=== PATIENT | female | born 1955 | race Caucasian/White ===

== ENCOUNTER → 2018-02-19 18:58 | Outpatient (CLI) | payer OTHER, SELFPAY ==
--- NOTE | 2018-02-19 | DI.RAD.S_ITS ---
PROCEDURE: XR THORACIC SPINE 3V INDICATIONS: NECK PAIN TECHNIQUE: 3 views of the thoracic spine were acquired. COMPARISON: None. FINDINGS: Bones: No fractures or dislocations. No suspicious bony lesions. 12 pairs of ribs are noted, and appear intact where visualized. Cervical fixation plate is present. Multilevel disc desiccation is present throughout the thoracic spine. Soft tissues: No paravertebral stripe thickening. IMPRESSION: Mild degenerative changes. Dictated by: Michela Reaves M.D. on 02/19/2018 at 20:43 Approved by: Michela Reaves M.D. on 02/19/2018 at 20:43
--- NOTE | 2018-02-19 | DI.RAD.S_ITS ---
PROCEDURE: XR CERVICAL SPINE 2V OR 3V INDICATIONS: NECK PAIN TECHNIQUE: 3 view(s) of the cervical spine were acquired. COMPARISON: [facility], CR, XR THORACIC SPINE 3V, 02/19/2018, 19:16. [facility], MR, C-SPINE WITHOUT CONTRAST, 01/08/2014, 17:00. FINDINGS: Bones: No fractures or dislocations to the C7-T1 level. The lateral masses of C1 appear intact on the odontoid view. No suspicious bony lesions. Anterior fusion is present from C4-C6. There is an overall appearance of cervical straightening. Soft tissues: No prevertebral soft tissue swelling. IMPRESSION: Post surgical changes without acute osseous abnormality. Dictated by: Michela Reaves M.D. on 02/19/2018 at 20:44 Approved by: Michela Reaves M.D. on 02/19/2018 at 20:45
== END ==
PROVIDERS: Family Provider Family Medicine; PCP Family Medicine; Visit Provider Family Medicine
DX: M54.2 Cervicalgia (principal); M51.34 Other intervertebral disc degeneration, thoracic region; Z98.1 Arthrodesis status
CPT/HCPCS: 72040; 72072

== ENCOUNTER → 2018-03-03 08:37 | Outpatient (CLI) | payer OTHER, SELFPAY ==
--- NOTE | 2018-03-03 | DI.RAD.S_ITS ---
PROCEDURE: XR HAND LT MIN 3V INDICATIONS: LEFT THUMB PAIN TECHNIQUE: 3 views of the left hand(s) acquired. COMPARISON: None. FINDINGS: Bones: No fractures or dislocations. Carpal bones are normally aligned. No suspicious bony lesions. Osteoarthritic changes are noted involving first CMC joint with joint space narrowing, subchondral sclerosis and marginal osteophyte formation. Soft tissues: No suspicious soft tissue calcifications. IMPRESSION: First CMC joint osteoarthritis. No fracture or dislocation. Dictated by: Joaquin Rainey M.D. on 03/03/2018 at 10:24 Approved by: Joaquin Rainey M.D. on 03/03/2018 at 10:25
== END ==
PROVIDERS: Family Provider Family Medicine; PCP Family Medicine; Visit Provider Family Medicine
DX: M18.12 Unilateral primary osteoarthritis of first carpometacarpal joint, left hand (principal); M79.645 Pain in left finger(s)
CPT/HCPCS: 73130

== ENCOUNTER → 2018-03-09 07:09 | Outpatient (CLI) | payer OTHER, SELFPAY ==
--- NOTE | 2018-03-09 | DI.MRI.S_ITS ---
PROCEDURE: MR CERVICAL SPINE WO CON INDICATIONS: CERVICALGIA TECHNIQUE: Noncontrast sagittal T1 spin echo and T2 fast spin echo, sagittal STIR, foraminal oblique sagittal T2 fast spin echo, and axial gradient echo or T2 fast spin echo through the cervical spine. COMPARISON: [facility], , C-SPINE WITHOUT CONTRAST, 01/08/2014, 17:00. FINDINGS: Image quality: Excellent. Alignment and Curvature: Straightening of the normal cervical lordosis. Grade 1 anterolisthesis of C3 on C4. Post surgical changes related to C4-C6 ACDF. Bone Marrow: No evidence of acute fracture Spinal Cord: Visualized spinal cord has normal size and signal. No cerebellar tonsillar herniation. Paraspinous Soft Tissues: No paravertebral masses. Prevertebral soft tissues are normal in thickness. C2-C3: Normal appearance. C3-C4: Bilateral uncovertebral arthropathy and posterior intervening disc osteophyte complex, and bilateral facet disease. Mild/moderate canal stenosis with effacement of the intrathecal sac and mass effect on the cord which appears slightly progressed since 01/08/14. Severe right and mild left foraminal stenoses, grossly unchanged. C4-C5: No residual canal stenosis. No foraminal stenosis. C5-C6: No residual canal stenosis. No foraminal stenosis. C6-C7: Bilateral uncovertebral arthropathy and posterior intervening disc osteophyte complex, and mild bilateral facet disease. Mild canal narrowing appears unchanged. Mild bilateral foraminal stenoses. C7-T1: Normal appearance. IMPRESSION: Status post C4-C6 ACDF. Slight interval progression at the upper adjacent unfused segment C3-C4, with increase in mild to moderate canal narrowing since 01/08/14. Severe right and mild left C3-C4 foraminal stenoses appear unchanged. Loss of the normal cervical lordosis. Mild grade 1 anterolisthesis of C3 on C4. Dictated by: Tone Merlos M.D. on 03/09/2018 at 8:47 Approved by: Tone Merlos M.D. on 03/09/2018 at 8:54
== END ==
PROVIDERS: Family Provider Family Medicine; PCP Family Medicine; Visit Provider Family Medicine
DX: M48.02 Spinal stenosis, cervical region (principal); M43.12 Spondylolisthesis, cervical region; M54.2 Cervicalgia
CPT/HCPCS: 72141

== ENCOUNTER → 2018-04-22 15:06 | Outpatient (CLI) | payer OTHER, SELFPAY ==
--- NOTE | 2018-04-22 | DI.CT.S_ITS ---
PROCEDURE: CT CERVICAL SPINE WO CON INDICATIONS: CERVIAL STENOSIS OF SPINE TECHNIQUE: Noncontrast 3 mm thick sections acquired from the skull base to the T4 level. Sagittal and coronal reformats were then constructed. For radiation dose reduction, the following was used: automated exposure control, adjustment of mA and/or kV according to patient size. COMPARISON: [facility], MR, MR CERVICAL SPINE WO CON, 03/09/2018, 7:50. FINDINGS: Image quality: Excellent. Bones: No fractures or dislocations. There is trace C3-C4 anterolisthesis. Visualized superior ribs are intact. Postsurgical changes compatible with C4-C6 ACDF are noted. Orthopedic hardware is intact. No lucency is identified at the bone hardware interface. There is straightening of normal cervical spine curvature. Mild C3-C4 degenerative changes are noted. Moderate C6-C7 and C7-T1 degenerative changes are noted. Mild C3-C4, C6-C7 and C7-T1 facet arthropathy. Severe right and mild left C3-C4 neural foraminal narrowing. Mild right and moderate left C6-C7 neural foraminal narrowing. Mild right and moderate left C7-T1 neural foraminal narrowing. Mild to moderate C3-C4 central canal narrowing secondary to disc disease. Soft tissues: Prevertebral soft tissues are normal in thickness. No paravertebral hematomas. No apical pneumothoraces. IMPRESSION: 1. Status post C4-C6 ACDF. 2. Multilevel degenerative disease. 3. Multilevel facet arthropathy. 4. Mild to moderate C3-C4 central canal narrowing. 5. Severe right and mild left C3-C4 neural foraminal narrowing. Mild right and moderate left C6-C7 and C7-T1 neural foraminal narrowing. Dictated by: Alison De La Fuente MD, PhD on 04/22/2018 at 15:37 Approved by: Alison De La Fuente MD, PhD on 04/22/2018 at 16:12
== END ==
PROVIDERS: PCP Family Medicine; Visit Provider Neurological Surgery
DX: M48.02 Spinal stenosis, cervical region (principal); M50.31 Other cervical disc degeneration, high cervical region; M47.812 Spondylosis without myelopathy or radiculopathy, cervical region; Z98.1 Arthrodesis status
CPT/HCPCS: 72125

== ENCOUNTER → 2018-05-04 15:14 | Outpatient (CLI) | payer OTHER, SELFPAY ==
--- NOTE | 2018-05-04 | DI.RAD.S_ITS ---
PROCEDURE: XR CERVICAL SPINE 4V OR 5V INDICATIONS: CERVICAL FUSION TECHNIQUE: 6 views of the cervical spine were acquired. COMPARISON: [facility], CR, XR CERVICAL SPINE 2V OR 3V, 02/19/2018, 19:16. FINDINGS: Bones: No fractures or dislocations to the T1 level. No suspicious bony lesions. There is normal range of motion between flexion and extension, with preserved normal bony alignment. There has been prior C4 through C6 anterior discectomy and fusion with interbody disc prosthesis placement at C4-5 and C5-6. No abnormal subluxation is seen during flexion and extension lateral imaging. Soft tissues: Prevertebral soft tissues are normal in thickness. IMPRESSION: Expected postoperative appearance after anterior discectomy and fusion procedure from C4-C6, without abnormal mobility or rigidity in the area of the cervical spine. Dictated by: Clint Segundo M.D. on 05/04/2018 at 16:04 Approved by: Clint Segundo M.D. on 05/04/2018 at 16:05
== END ==
PROVIDERS: PCP Family Medicine; Visit Provider Neurological Surgery
DX: M54.12 Radiculopathy, cervical region (principal); Z98.1 Arthrodesis status
CPT/HCPCS: 72050

== ENCOUNTER 2018-05-07 15:01 | Emergency (ER) | payer OTHER, SELFPAY ==
[2018-05-07 15:11] VITALS: BP 147/79; PULSE 83; RESP 16; TEMP 37.6; O2SAT 100
[2018-05-07] MEDS: methylPREDNISolone 125 MG/2 ML VIAL IV (15:33)
[2018-05-07] MEDS: EPINEPHrine 1 MG/ML AMPUL 0.3 MG IM (15:33)
[2018-05-07] MEDS: diphenhydrAMINE 50 MG/ML VIAL 25 MG IV ×2 (15:33→16:24)
[2018-05-07] MEDS: ALBUTEROL 2.5 MG/3 ML NEB (ADULT) INH (15:33)
--- NOTE | 2018-05-07 16:01 | ED.ALLEREA ---
HPI - Allergic Reaction General Chief complaint: Allergic Reaction Stated complaint: STUNG BY BEES SWELLING OF HANDS HARD TIME BREATHIN Time Seen by Provider: 05/07/18 15:13 Source: patient Mode of arrival: ambulatory Limitations: no limitations History of Present Illness HPI narrative: Patient is a 63-year-old female who presents with all left arm swelling and difficulty breathing. She was stung by yellow jackets yesterday. 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 Never before had allergic reaction. Today his she continued to have swelling and started having difficulty breathing and feels like her throat is swelling. She is able speak in full sentences. MD complaint: allergic reaction Related Data Home Medications Medication Instructions Recorded Confirmed cephalexin [Keflex] 500 mg PO QID #0 05/18/13 lorazepam 0.5 mg PO Q DAY PRN #0 05/18/13 Allergies Allergy/AdvReac Type Severity Reaction Status Date / Time erythromycin base Allergy Unknown Verified 05/07/18 15:11 [ERYTHROMYCIN BASE] Sulfa (Sulfonamide Allergy Unknown Verified 05/07/18 15:11 Antibiotics) [SULFA (SULFONAMIDE ANTIBIOTICS)] methylprednisolone Allergy Verified 05/07/18 15:38 [From Depo-Medrol] Review of Systems Review of Systems All systems reviewed & are unremarkable except as noted in HPI and below Constitutional Denies chills, Denies fever(s), Denies lethargy and Denies weakness ENT Ears, Nose, Mouth, and Throat: Reports as per HPI, Reports hoarseness and Denies neck pain Cardiovascular Denies chest pain, Denies irregular heart rhythm, Denies lightheadedness, Denies palpitations and Denies orthopnea Respiratory Reports as per HPI Gastrointestinal Gastrointestinal: Denies abdominal pain, Denies change in bowel habits, Denies diarrhea, Denies nausea and Denies vomiting Musculoskeletal Denies neck pain Comments: Left arm swelling Integumentary/Breasts Reports as per HPI, Reports erythema and Reports skin pain Comments: + pruritus Neurologic Denies weakness Endocrine Denies palpitations Exam Initial Vital Signs Initial Vital Signs: Vital Signs Temperature 99.7 F H 05/07/18 15:11 Pulse Rate 83 05/07/18 15:11 Respiratory Rate 16 05/07/18 15:11 Blood Pressure 147/79 H 05/07/18 15:11 Pulse Oximetry 100 05/07/18 15:11 GENERAL: Well-appearing, well-nourished and in no acute distress. HEENT: Head atraumatic,EOMI, pupils reactive, face symmetric, hoarse voice, no obvious pharynx swelling CARDIOVASCULAR: Regular rate and rhythm without murmurs, rubs or gallops. RESPIRATORY: Breath sounds equal bilaterally, no wheezes rales or rhonchi. ABDOMEN: Soft, nontender. Normoactive bowel sounds all 4 quadrants. No guarding or rebound. EXTREMITIES: Normal range of motion, no clubbing or edema. Neurovascularly intact NEUROLOGICAL: Alert and oriented x4.Normal gait and speech. Cranial nerves II through XII grossly intact. SKIN: Left arm is swollen and erythematous good distal radial pulse Course Orders Ordered: Discontinued Medications Albuterol (Ventolin) 2.5 mg INH NOW ONE Stop: 05/07/18 15:31 Last Admin: 05/07/18 15:33 Dose: 2.5 mg Diphenhydramine HCl (Benadryl) 25 mg IV NOW ONE Stop: 05/07/18 15:27 Last Admin: 05/07/18 15:33 Dose: 25 mg Diphenhydramine HCl (Benadryl) 25 mg IV NOW ONE Stop: 05/07/18 16:09 Last Admin: 05/07/18 16:24 Dose: 25 mg Epinephrine HCl (Adrenalin) 0.3 mg IM NOW ONE Stop: 05/07/18 15:29 Last Admin: 05/07/18 15:33 Dose: 0.3 mg Famotidine (Pepcid) 20 mg in 50 mls @ 200 mls/hr IV NOW ONE Stop: 05/07/18 16:22 Last Infusion: 05/07/18 17:15 Dose: 0 mls/hr Admin: 05/07/18 16:24 Dose: 200 mls/hr Methylprednisolone (Solu-Medrol 125 Mg Vial) 125 mg IV NOW ONE Stop: 05/07/18 15:27 Last Admin: 05/07/18 15:33 Dose: 125 mg Vital Signs - 8 hr 05/07/18 15:11 05/07/18 16:30 05/07/18 17:00 Temperature 99.7 F H Pulse Rate 83 88 87 Respiratory Rate 16 14 18 Blood Pressure 147/79 H Blood Pressure [Left Arm] 118/62 141/49 H Pulse Oximetry 100 100 97 05/07/18 17:20 Temperature Pulse Rate 83 Respiratory Rate 13 Blood Pressure 127/60 Blood Pressure [Left Arm] Pulse Oximetry 99 MDM - Allergic Reaction MDM Narrative Medical decision making narrative: Patient overall is feeling much better breathing is much better. Her voice is much stronger. She feels ready and able to go home. Discussed warning signs and when to return to the ED. Discharge Plan Departure Patient Disposition: Home Clinical Impression: Anaphylaxis Discharge Date/Time: 05/07/18 17:21 Interventions: ED Discharge Assessment Last Done: 05/07/18 17:20 Instructions: Anaphylaxis Activity Restrictions/Additional Instructions: *You have been diagnosed with anaphylaxis *What to do: Allergic reaction to yellow jacket *Continue to take medications as directed Benadryl 25-50 mg every 6 hr if needed for itching *Follow up with your primary care provider in 2-3 days *Return to ER if you should have increased difficulty breathing, swelling, difficulty swallowing or any new, worsening or concerning symptoms Prescriptions: No Action lorazepam 0.5 MG tablet 0.5 mg PO Q DAY PRN Qty: 0 RF: 0 cephalexin [Keflex] 500 MG capsule 500 mg PO QID Qty: 0 RF: 0
[2018-05-07] MEDS: FAMOTIDINE 20 MG/50 ML PIGGYBACK 200 MG IV (16:24)
[2018-05-07 16:30] VITALS: BP 118/62; PULSE 88; RESP 14; O2SAT 100
[2018-05-07 17:00] VITALS: BP 141/49; PULSE 87; RESP 18; O2SAT 97
[2018-05-07 17:20] VITALS: BP 127/60; PULSE 83; RESP 13; O2SAT 99
--- NOTE | 2018-05-12 16:21 | PC.NURSE ---
called for pt follow up,no answer
== END 2018-05-07 17:21 | disposition home or self-care (01) ==
PROVIDERS: Emergency Provider Emergency Medicine; PCP Family Medicine
DX: T78.2XXA Anaphylactic shock, unspecified, initial encounter (principal); T63.441A Toxic effect of venom of bees, accidental (unintentional), initial encounter; R06.89 Other abnormalities of breathing
CPT/HCPCS: 36591; 96365; 96372; 96375; 99283; 99284; J0171; J1200; J2930; J7613

== ENCOUNTER → 2018-09-03 13:09 | Outpatient (CLI) | payer OTHER, SELFPAY ==
--- NOTE | 2018-09-03 | DI.RAD.S_ITS ---
PROCEDURE: XR SINUS <3V INDICATIONS: SINUS PROBLEMS TECHNIQUE: 3 views of the sinuses were acquired. COMPARISON: None. FINDINGS: Sinuses: The visualized sinuses demonstrate no air-fluid levels or mucosal thickening. The visualized mastoids also appear clear. Bones: No suspicious bony lesions. Nasal septum is midline. IMPRESSION: No significant sinusitis. Dictated by: Pepe Betancur M.D. on 09/03/2018 at 13:52 Approved by: Pepe Betancur M.D. on 09/03/2018 at 13:53
== END ==
PROVIDERS: PCP Family Medicine; Visit Provider Family Medicine
DX: J32.9 Chronic sinusitis, unspecified (principal)
CPT/HCPCS: 70210

== ENCOUNTER → 2018-09-05 12:48 | Outpatient (CLI) | payer OTHER, SELFPAY ==
--- NOTE | 2018-09-05 | DI.US.S_ITS ---
PROCEDURE: US ABDOMEN COMPLETE INDICATIONS: RIGHT LOWER QUADRANT PAIN TECHNIQUE: Real-time scanning was performed of the abdominal and retroperitoneal organs, with image documentation. COMPARISON: None. FINDINGS: Liver: Liver is normal in size and homogeneous in echotexture. Gallbladder: No findings of gallstones or sludge are seen. The gallbladder wall is not thickened, measuring 3 mm or less. No specific pericholecystic fluid is seen. The sonographic Henry sign is negative. Biliary ducts: Intrahepatic bile ducts are non-dilated. Extrahepatic bile duct caliber measures 4 mm. Normal is 6-7 mm or less in diameter, or 10 mm or less post-cholecystectomy. Pancreas: Visualized portions of the pancreas are sonographically normal. Spleen: Spleen is normal in size and homogeneous in echotexture. Kidneys: Kidneys are normal in size and echotexture. Right kidney measures 12 cm long; left kidney measures 11 cm long. No hydronephrosis or nephrolithiasis. No solid masses. Aorta: Visualized aorta is normal in caliber at less than 3 cm. Iliacs: Proximal common iliac arteries are normal in caliber at less than 2.5 cm. IVC: Intrahepatic inferior vena cava is patent. Miscellaneous: No free abdominal fluid. IMPRESSION: No imaging explanation is found for this patient's presenting history of right lower quadrant pain. The gallbladder demonstrates a normal sonographic appearance. No biliary dilatation is seen. Dictated by: Andrés Devi M.D. on 09/05/2018 at 13:13 Approved by: Andrés Devi M.D. on 09/05/2018 at 13:14
--- NOTE | 2018-09-05 | DI.US.S_ITS ---
PROCEDURE: US PELVIC COMPLETE INDICATIONS: RIGHT LOWER QUADRANT PAIN TECHNIQUE: Real-time scanning was performed of the pelvic organs, with image documentation. Additional endovaginal scanning was necessary due to incomplete visualization of the adnexal and endometrial structures by transabdominal scanning. COMPARISON: [facility], , US ABDOMEN COMPLETE, 09/05/2018, 13:13. FINDINGS: Transabdominal scanning: No pathologic free abdominal or pelvic fluid. On the accompanying abdominal ultrasound, the kidneys demonstrate a normal appearance. Endovaginal scanning: Uterus: Uterus is normal in size at 8.3 x 3 x 4.6 cm. The endometrium measures 5 mm in combined thickness and appears ill-defined. There is a posterior subserosal fibroid seen that measures up to 3.3 cm. Ovaries: The right ovary measures 1.5 x 0.9 x 1.5 cm. The left ovary measures 2.1 x 1.6 x 2.1 cm. The ovaries have a normal sonographic appearance. No adnexal masses are seen. IMPRESSION: Because of the patient's presenting history of right lower quadrant pain is not identified. A 3.3 cm right sided fibroid is incidentally noted. No abnormal free pelvic fluid can be seen. Dictated by: Andrés Devi M.D. on 09/05/2018 at 13:14 Approved by: Andrés Devi M.D. on 09/05/2018 at 13:16
--- NOTE | 2018-09-05 | DI.RAD.S_ITS ---
PROCEDURE: XR FOOT LT MIN 3V INDICATIONS: LEFT ANKLE PAIN AND LEFT FOOT TECHNIQUE: 3 views of the foot were acquired. COMPARISON: [facility], , FOOT 2V LEFT, 04/26/2014, 10:03. [facility], , FOOT 2V RIGHT, 04/26/2014, 10:01. FINDINGS: Bones: No fractures or dislocations. Moderate degenerative change of the first metatarsophalangeal joint and mild degenerative change of the first interphalangeal joint. Additional mild degenerative changes of the second through fifth interphalangeal joints. There is calcaneal enthesopathy with spurs at the Achilles and plantar insertion sites. Soft tissues: No tibiotalar joint effusion. IMPRESSION: Calcaneal enthesopathy/spurs and degenerative changes of the left foot as described above. No acute osseous abnormality of the left foot identified. Dictated by: Alex Fernandes M.D. on 09/05/2018 at 15:57 Approved by: Alex Fernandes M.D. on 09/05/2018 at 16:07
--- NOTE | 2018-09-05 | DI.RAD.S_ITS ---
PROCEDURE: XR ANKLE LT MIN 3V INDICATIONS: FOOT AND ANKLE PAIN TECHNIQUE: 3 views of the ankle were acquired. COMPARISON: [facility], , ANKLE 3 VIEWS LEFT, 05/23/2014, 16:15. FINDINGS: Bones: No fractures or dislocations. Ankle mortise is normally aligned. No suspicious bony lesions. Calcaneal enthesopathy/spurs at the Achilles and plantar insertion sites. Soft tissues: No tibiotalar joint effusion. IMPRESSION: Left calcaneal enthesopathy/spurs. No acute osseous abnormality of the left ankle. Dictated by: Alex Fernandes M.D. on 09/05/2018 at 16:12 Approved by: Alex Fernandes M.D. on 09/05/2018 at 16:19
== END ==
PROVIDERS: PCP Family Medicine; Visit Provider Family Medicine
DX: R10.31 Right lower quadrant pain (principal); M25.572 Pain in left ankle and joints of left foot; R60.0 Localized edema; D25.2 Subserosal leiomyoma of uterus; M77.32 Calcaneal spur, left foot; M19.072 Primary osteoarthritis, left ankle and foot; G89.29 Other chronic pain
CPT/HCPCS: 73610; 73630; 76700; 76830; 76856

== ENCOUNTER → 2019-01-21 09:13 | Outpatient (CLI) | payer OTHER, SELFPAY ==
--- NOTE | 2019-01-21 | DI.MG.S_ITS ---
BILATERAL DIGITAL SCREENING MAMMOGRAM 3D/2D WITH CAD: 01/21/2019 CLINICAL: Routine screening. Comparison is made to exams dated: 04/06/2017 mammogram, 04/03/2016 mammogram - [facility], and 04/15/2014 mammogram - [facility]. There are scattered fibroglandular elements in both breasts. Current study was also evaluated with a Computer Aided Detection (CAD) system. No significant masses, calcifications, or other findings are seen in either breast. There has been no significant interval change. IMPRESSION: NEGATIVE There is no mammographic evidence of malignancy. A 1 year screening mammogram is recommended. This exam was interpreted at Station ID: [id number]. NOTE: For mammograms, a report in lay terms will be sent to the patient. Approximately 15% of breast malignancies will not be visualized mammographically. In the management of a palpable breast mass, a negative mammogram must not discourage biopsy of a clinically suspicious lesion. Electronically Signed By: Beth carter/lelia:01/23/2019 11:36:16 letter sent: Normal Exam ACR BI-RADS Category 1: Negative [id number]
== END ==
PROVIDERS: PCP Family Medicine; Visit Provider Family Medicine
DX: Z12.31 Encounter for screening mammogram for malignant neoplasm of breast (principal)
CPT/HCPCS: 77063; 77067

== ENCOUNTER → 2019-01-26 12:04 | Outpatient (CLI) | payer OTHER, SELFPAY ==
--- NOTE | 2019-01-26 | DI.RAD.S_ITS ---
PROCEDURE: XR HIP W PEL IF DONE LT 2V INDICATIONS: HIP/BACK PAIN TECHNIQUE: AP pelvis with lateral view(s) of the left hip(s). COMPARISON: [facility], PAM, [id number] W PEL IF PERFORMED, 03/27/2016, 14:29. [facility], , HIP 2V LEFT, 10/27/2010, 9:36. FINDINGS: Bones: No fractures or dislocations. Pelvic ring appears intact. No suspicious bony lesions. Minimal symmetric hip and sacroiliac joint degeneration bilaterally. Soft tissues: The visualized bowel gas pattern is normal. No suspicious soft tissue calcifications. IMPRESSION: Minimal symmetric hip and sacroiliac joint degeneration. Dictated by: Ru Amaya M.D. on 01/26/2019 at 16:46 Approved by: Ru Amaya M.D. on 01/26/2019 at 21:42
--- NOTE | 2019-01-26 | DI.RAD.S_ITS ---
PROCEDURE: XR LUMBAR SPINE 2-3V INDICATIONS: HIP/BACK PAIN TECHNIQUE: 3 views of the lumbar spine were acquired. COMPARISON: [facility], , L-SPINE 2-3 VIEWS, 03/27/2016, 14:29. FINDINGS: Bones: 5 [id number] vertebrae are present. There is normal bony alignment. No vertebral body compression fractures. No suspicious bony lesions. There is mild/moderate degenerative disc disease throughout the lumbar spine. Moderate facet arthropathy at L4-L5 and L5-S1. Soft tissues: Overlying bowel gas pattern is normal. No suspicious soft tissue calcifications. IMPRESSION: Mild to moderate degenerative disc and facet disease. Dictated by: Ru Amaya M.D. on 01/26/2019 at 16:44 Approved by: Ru Amaya M.D. on 01/26/2019 at 21:41
== END ==
PROVIDERS: PCP Family Medicine; Visit Provider Family Medicine
DX: M54.5 Low back pain (principal); M51.36 Other intervertebral disc degeneration, lumbar region; M47.816 Spondylosis without myelopathy or radiculopathy, lumbar region; M47.817 Spondylosis without myelopathy or radiculopathy, lumbosacral region; M25.559 Pain in unspecified hip
CPT/HCPCS: 72100; 73502

== ENCOUNTER → 2019-09-29 14:49 | Outpatient (CLI) | payer MEDICARE, OTHER, SELFPAY ==
--- NOTE | 2019-09-29 | DI.CT.S_ITS ---
PROCEDURE: CT CERVICAL SPINE WO CON INDICATIONS: HEADACHE CERVICALGIA TECHNIQUE: Noncontrast 3 mm thick sections acquired from the skull base to the T4 level. Sagittal and coronal reformats were then constructed. For radiation dose reduction, the following was used: automated exposure control, adjustment of mA and/or kV according to patient size. COMPARISON: [facility], CR, XR CERVICAL SPINE 4V OR 5V, 05/04/2018, 15:07. [facility], CT, CT CERVICAL SPINE WO CON, 04/22/2018, 15:04. FINDINGS: Image quality: Excellent. Bones: No fractures or dislocations. There is a straightening of cervical curvature. There is discectomy and anterior cervical fusion at C4-C6. Degenerative disc disease is present, moderate at C6-C7 and mild at C3-C4. There is bilateral facet arthropathy, most pronounced at C2-C3 and C3-C4. No central canal stenosis at C3-C4. There is foraminal stenosis, moderate to severe at C3-C4 on the right, moderate at C3-C4 on the left and C6-C7 bilaterally. Visualized superior ribs are intact. Soft tissues: Prevertebral soft tissues are normal in thickness. No paravertebral hematomas. No apical pneumothoraces. IMPRESSION: 1. Degenerative and post surgical changes in cervical spine as described. 2. Moderate central canal stenosis at C3-C4. 3. Foraminal stenoses at several levels as described. Dictated by: Ru Amaya M.D. on 09/29/2019 at 15:36 Approved by: Ru Amaya M.D. on 09/29/2019 at 15:41
--- NOTE | 2019-09-29 | DI.CT.S_ITS ---
PROCEDURE: CT HEAD/BRAIN WO CON INDICATIONS: HEADACHE CERVICALGIA TECHNIQUE: Noncontrast 4.5 mm thick angled axial sections acquired from the foramen magnum to the vertex, with coronal and sagittal reformats. For radiation dose reduction, the following was used: automated exposure control, adjustment of mA and/or kV according to patient size. COMPARISON: [facility], MR, BRAIN W&WO CONTRAST, 10/10/2014, 17:32. [facility], MR, BRAIN WITH AND WITHOUT CONTRAS, 02/22/2007, 7:51. [facility], CT, HEAD WITHOUT CONTRAST, 10/31/2012, 8:20. FINDINGS: Image quality: Excellent. CSF spaces: Basal cisterns are patent. No extra-axial fluid collections. Ventricles are normal in size and shape. Brain: There is subtle calcification in the left posterior frontal white matter, which correlates with previously known cavernous malformation. While calcification appears less conspicuous, the area of involvement may have slightly increased. No midline shift. No intracranial masses or hemorrhage. Adams-white matter interface is normal. Skull and face: Calvarium and visualized facial bones are intact, without suspicious lesions. Sinuses: Visualized sinuses and mastoids are clear. IMPRESSION: 1. No acute intracranial abnormalities. 2. Subtle calcification in the left posterior frontal white matter, correlating with known cavernous malformation. While calcification appears less conspicuous, the area of involvement may have slightly increased. If clinical symptoms persist, MRI with and without contrast is suggested for followup evaluation. Dictated by: Ru Amaya M.D. on 09/29/2019 at 15:14 Approved by: Ru Amaya M.D. on 09/29/2019 at 18:15
== END ==
PROVIDERS: PCP Family Medicine; Referring Provider Family Medicine; Visit Provider Family Medicine
DX: R51 Headache (principal); M50.31 Other cervical disc degeneration, high cervical region; M47.812 Spondylosis without myelopathy or radiculopathy, cervical region; M48.02 Spinal stenosis, cervical region; Z98.1 Arthrodesis status
CPT/HCPCS: 70450; 72125

== ENCOUNTER → 2019-12-30 13:28 | Outpatient (CLI) | payer MEDICARE, OTHER, SELFPAY ==
--- NOTE | 2019-12-30 | DI.RAD.S_ITS ---
PROCEDURE: XR THORACIC SPINE 3V INDICATIONS: Upper abdominal pain, unspecified TECHNIQUE: 3 views of the thoracic spine were acquired. COMPARISON: [facility], CR, XR THORACIC SPINE 3V, 02/19/2018, 19:16. FINDINGS: Bones: No fractures or dislocations. No suspicious bony lesions. There are no pairs of ribs are noted, and appear intact where visualized. Remote ACDF in the cervical region Soft tissues: No paravertebral stripe thickening. IMPRESSION: No evidence acute bony abnormality of the thoracic spine. If clinical suspicion and/or symptoms persist, further assessment with repeat plain films, or advanced imaging (e.g., CT, MRI, or bone scan) may be helpful for further assessment. Dictated by: Oseas Serrano M.D. on 12/30/2019 at 12:53 Approved by: Oseas Serrano M.D. on 12/30/2019 at 12:54
== END ==
PROVIDERS: PCP Family Medicine; Referring Provider Family Medicine; Visit Provider Family Medicine
DX: R10.10 Upper abdominal pain, unspecified (principal); Z98.1 Arthrodesis status
CPT/HCPCS: 72072

== ENCOUNTER → 2020-02-17 13:34 | Outpatient (CLI) | payer MEDICARE, OTHER, SELFPAY ==
--- NOTE | 2020-02-17 | DI.MG.S_ITS ---
BILATERAL DIGITAL SCREENING MAMMOGRAM 3D/2D WITH CAD: 02/17/2020 CLINICAL: Routine screening. Comparison is made to exams dated: 01/21/2019 mammogram, 04/06/2017 mammogram, 04/03/2016 mammogram - [facility], 04/11/2013 mammogram, and 04/15/2014 mammogram - [facility]. There are scattered fibroglandular elements in both breasts. Current study was also evaluated with a Computer Aided Detection (CAD) system. No significant masses, calcifications, or other findings are seen in either breast. There has been no significant interval change. IMPRESSION: NEGATIVE There is no mammographic evidence of malignancy. A 1 year screening mammogram is recommended. This exam was interpreted at Station ID: [id number]. NOTE: For mammograms, a report in lay terms will be sent to the patient. Approximately 15% of breast malignancies will not be visualized mammographically. In the management of a palpable breast mass, a negative mammogram must not discourage biopsy of a clinically suspicious lesion. Electronically Signed By: Cody paniagua/lelia:02/19/2020 09:20:48 letter sent: Normal Exam ACR BI-RADS Category 1: Negative 3341F
== END ==
PROVIDERS: PCP Family Medicine; Referring Provider Family Medicine; Visit Provider Family Medicine
DX: Z12.31 Encounter for screening mammogram for malignant neoplasm of breast (principal)
CPT/HCPCS: 77063; 77067

== ENCOUNTER → 2020-04-16 16:48 | Outpatient (CLI) | payer MEDICARE, OTHER, SELFPAY ==
--- NOTE | 2020-04-16 16:53 | DI.MRI.S_ITS ---
PROCEDURE: MR HEAD/BRAIN WO CON INDICATIONS: RECURRENT PANSINUSITIS TECHNIQUE: Non-contrast axial T1 spin echo, axial T2 fast spin echo, sagittal and axial FLAIR, coronal T2 fast spin echo, axial gradient echo, axial diffusion and ADC through the brain. COMPARISON: [facility], MR, ANGIOGRAM HEAD WITHOUT CONTRAS, 03/28/2007, 11:59. [facility], MR, MR CERVICAL SPINE WO CON, 04/16/2020, 17:02. [facility], CT, CT HEAD/BRAIN WO CON, 09/29/2019, 14:52. [facility], MR, BRAIN W&WO CONTRAST, 10/10/2014, 17:32. FINDINGS: Image quality: Excellent. CSF spaces: Ventricles appear symmetric in size and shape. Basal cisterns are patent. No extra-axial fluid collections. Brain: A left frontal lobe cavernoma is again seen, with a T2 hyperintense rim again seen. This lesion demonstrates a popcorn like appearance. Blooming artifact is seen on the gradient recalled echo images. No intracranial bleeds or mass effects. There is cerebral volume loss for age. There are periventricular and deep white matter chronic small vessel ischemic changes. Brainstem appears normal. Diffusion-weighted images show no acute ischemic insults. No chronic ischemic insults. Normal intravascular flow voids are present. Skull and face: Calvarial bone marrow is normal in signal. Orbits are normal. Incidental note is made of hyperostosis frontalis. This is not considered to be pathologic in a woman of this age. Sinuses: Sinuses and mastoids are clear. IMPRESSION: Stable left frontal lobe cavernous hemangioma. No significant paranasal sinus disease is seen. Dictated by: Andrés Devi M.D. on 04/16/2020 at 17:32 Approved by: Andrés Devi M.D. on 04/16/2020 at 17:36
--- NOTE | 2020-04-16 16:54 | DI.MRI.S_ITS ---
PROCEDURE: MR CERVICAL SPINE WO CON INDICATIONS: CERVICALGIA TECHNIQUE: Noncontrast sagittal T1 spin echo and T2 fast spin echo, sagittal STIR, foraminal oblique sagittal T2 fast spin echo, and axial gradient echo or T2 fast spin echo through the cervical spine. COMPARISON: [facility], MR, C-SPINE WITHOUT CONTRAST, 01/08/2014, 17:00. [facility], CT, CT CERVICAL SPINE WO CON, 09/29/2019, 14:52. [facility], MR, MR HEAD/BRAIN WO CON, 04/16/2020, 17:31. [facility], MR, MR CERVICAL SPINE WO CON, 03/09/2018, 7:50. FINDINGS: Image quality: Diagnostic, with note made of motion artifact. There is artifact associated with the metallic hardware. Alignment and Curvature: There is straightening of the normal cervical lordosis. Minimal anterolisthesis is seen at the C3-C4 level. Bone Marrow: Marrow demonstrates normal overall signal. Spinal Cord: Visualized spinal cord has normal size and signal. No cerebellar tonsillar herniation. Paraspinous Soft Tissues: No paravertebral masses. Prevertebral soft tissues are normal in thickness. Postoperative changes are seen, with anterior fixation hardware C4 through C6. Disc spacers are seen at C4-C5 and C5-C6. There is associated susceptibility artifact. C2-C3: The disc height is well-preserved. Loss of disc signal is seen at this level. A mild degree of generalized disc osteophyte complex is seen. Moderate facet joint hypertrophy is seen. No significant neural foraminal or central canal narrowing can be seen. When comparison is made with the prior examination, these findings are similar. C3-C4: Wbbp-uy-[id number] loss of disc height and disc signal can be seen. Moderate generalized disc osteophyte complex is seen. Uncovertebral joint hypertrophy is seen at this level. At least moderate facet hypertrophy is seen. There is moderate to severe bilateral neural foraminal narrowing seen, right worse than left. Mild to moderate central canal narrowing is seen. These imaging findings have progressed compared to the prior study. C4-C5: Postoperative changes are seen at this level. Mild to moderate disc osteophyte complex is seen. Mild to moderate facet hypertrophy is seen at this level. Mild to moderate bilateral neural foraminal narrowing is seen. No significant central canal narrowing is seen. The degree of neural foraminal narrowing has progressed compared to 2018. C5-C6: There are postoperative changes seen anteriorly at this level. Moderate generalized disc osteophyte complex is seen. Moderate facet joint hypertrophy is seen. There is mild left-sided and moderate right-sided neural foraminal narrowing seen. No central canal narrowing is seen. When comparison is made with the prior examination, these findings are similar. C6-C7: At least moderate loss of disc height and disc signal can be seen. At least moderate disc osteophyte complex is seen. Moderate facet joint hypertrophy is seen. There is at least moderate bilateral neural foraminal narrowing seen. Mild to moderate central canal narrowing is seen. These imaging findings have progressed compared to the prior study. C7-T1: Fozg-zx-aqnpynmn loss of disc height and disc signal can be seen. Mild to moderate disc osteophyte complex is seen, which is eccentric to the left. Moderate facet joint hypertrophy is seen. No significant neural foraminal narrowing is seen. No significant central canal narrowing is seen. These imaging findings have progressed compared to the prior study. IMPRESSION: Unremarkable C4 through C6 anterior fixation hardware, with associated susceptibility artifact. Since 2018, the degenerative changes have progressed at several levels. Dictated by: Andrés Devi M.D. on 04/16/2020 at 17:36 Approved by: Andrés Devi M.D. on 04/16/2020 at 17:42
== END ==
PROVIDERS: PCP Family Medicine; Referring Provider Family Medicine; Visit Provider Family Medicine
DX: J01.41 Acute recurrent pansinusitis (principal); D18.02 Hemangioma of intracranial structures; M54.2 Cervicalgia; M47.812 Spondylosis without myelopathy or radiculopathy, cervical region
CPT/HCPCS: 70551; 72141

== ENCOUNTER → 2020-07-31 09:19 | Outpatient (CLI) | payer MEDICARE, OTHER, SELFPAY ==
--- NOTE | 2020-07-31 | DI.CT.S_ITS ---
PROCEDURE: CT ABDOMEN PELVIS WO CON INDICATIONS: Right lower quadrant pain TECHNIQUE: After the administration of oral contrast, 5 mm thick sections acquired from the diaphragms to the symphysis. 5 mm coronal and sagittal reformats were performed. For radiation dose reduction, the following was used: automated exposure control, adjustment of mA and/or kV according to patient size. COMPARISON: None. FINDINGS: Image quality: ABDOMEN: Lung bases: Lung bases are clear. Heart size is normal. Solid organs: Liver is normal in size. The gallbladder is grossly unremarkable. Pancreas is normal in size. Spleen is normal in size. No adrenal nodules. Both kidneys are normal in size, without hydronephrosis or nephrolithiasis. Peritoneum and bowel: Bowel loops demonstrate normal wall thickness and caliber. No free fluid or air. Appendix is not clearly identified however no suspicious pericecal inflammatory changes are seen. Diffuse large amount of stool. Nodes and vessels: No retroperitoneal or mesenteric adenopathy by size criteria. Aorta and inferior vena cava are normal in size. Miscellaneous: No ventral hernias. PELVIS: Bladder is unremarkable. There is ill-defined hypoattenuating focus present within the right uterus on image 66/3 possibly uterine fibroid measuring 2 cm although this could be confirmed with ultrasound. Miscellaneous: No inguinal hernias or adenopathy. Bones: No suspicious bony lesions. No vertebral body compression fractures. IMPRESSION: Appendix is not clearly identified however no suspicious pericecal inflammatory changes are seen. Possible uterine fibroid which could be confirmed with ultrasound. No acute abnormality Large amount of stool Dictated by: Tone Merlos M.D. on 07/31/2020 at 15:40 Approved by: Tone Merlos M.D. on 07/31/2020 at 15:46
== END ==
PROVIDERS: PCP Family Medicine; Referring Provider Family Medicine; Visit Provider Family Medicine
DX: R10.31 Right lower quadrant pain (principal)
CPT/HCPCS: 74176

== ENCOUNTER → 2020-08-23 10:55 | Outpatient (CLI) | payer MEDICARE, OTHER, SELFPAY ==
--- NOTE | 2020-08-23 | DI.US.S_ITS ---
PROCEDURE: US PELVIC COMPLETE INDICATIONS: Right lower quadrant pain TECHNIQUE: Real-time scanning was performed of the pelvic organs, with image documentation. Additional endovaginal scanning was necessary due to incomplete visualization of the adnexal and endometrial structures by transabdominal scanning. COMPARISON: [facility], , US PELVIC COMPLETE, 09/05/2018, 13:29. FINDINGS: Uterus: Uterus is normal in size at 3.7 x 5.0 x 9.2 cm. The endometrium measures 3.7 mm in combined thickness. Incidental note is made of a 3.5 cm maximal dimension right-sided subserosal fibroid. Ovaries: The right ovary measures 2.3 x 1.4 x 1.4 cm and the left measures 2.1 x 1.4 by 0.9 cm. There is no evidence of ovarian torsion. Other: No pathologic free abdominal or pelvic fluid. IMPRESSION: Source of right lower quadrant pain is not identified. No evidence of ovarian torsion. Dictated by: Clint Segundo M.D. on 08/23/2020 at 16:07 Approved by: Clint Segundo M.D. on 08/23/2020 at 16:27
== END ==
PROVIDERS: PCP Family Medicine; Referring Provider Family Medicine; Visit Provider Family Medicine
DX: R10.31 Right lower quadrant pain (principal); D25.2 Subserosal leiomyoma of uterus
CPT/HCPCS: 76830; 76856

== ENCOUNTER → 2020-11-07 12:33 | Outpatient (CLI) | payer MEDICARE, OTHER, SELFPAY ==
--- NOTE | 2020-11-07 | DI.MG.S_ITS ---
BILATERAL DIGITAL DIAGNOSTIC MAMMOGRAM 3D/2D: 11/07/2020 CLINICAL: Left breast pain. Comparison is made to exams dated: 02/17/2020 mammogram, 01/21/2019 mammogram, and 04/06/2017 mammogram - [facility]. There are scattered fibroglandular elements in both breasts. No significant masses, calcifications, or other findings are seen in either breast. Post-surgical changes in the upper outer quadrant of the left breast appear stable. IMPRESSION: NEGATIVE There is no abnormality seen in the left breast to correspond with the diffuse pain, however, clinical followup is recommended. There is no mammographic evidence of malignancy. A 1 year screening mammogram is recommended. This exam was interpreted at Station ID: [id number]. NOTE: For mammograms, a report in lay terms will be sent to the patient. Approximately 15% of breast malignancies will not be visualized mammographically. In the management of a palpable breast mass, a negative mammogram must not discourage biopsy of a clinically suspicious lesion. Electronically Signed By: Derek burkett/:11/07/2020 13:29:15 letter sent: Clinical Evaluation ACR BI-RADS Category 1: Negative 3341F
== END ==
PROVIDERS: PCP Family Medicine; Referring Provider Nurse Practitioner Obstetrics & Gynecology; Visit Provider Nurse Practitioner Obstetrics & Gynecology
DX: N64.4 Mastodynia (principal)
CPT/HCPCS: 77066; G0279

== ENCOUNTER → 2020-12-04 09:29 | Outpatient (CLI) | payer MEDICARE, OTHER, SELFPAY ==
[2020-12-04 11:00] LABS: COVID19 -Nasal RAPID Negative (Negative)
== END ==
PROVIDERS: PCP Family Medicine; Visit Provider Surgery
DX: Z20.822 Contact with and (suspected) exposure to COVID-19 (principal)
CPT/HCPCS: 87635; C9803

== ENCOUNTER 2020-12-05 13:19 | Day surgery (SDC) | payer MEDICARE, OTHER, SELFPAY ==
[2020-12-05 14:02] VITALS: BP 138/72; PULSE 80; RESP 16; TEMP 37.1; O2SAT 99
[2020-12-05] MEDS: LACTATED RINGERS 1,000 ML 200 ML IV (14:19)
--- NOTE | 2020-12-05 14:29 | PM.HP.1 ---
History of Present Illness History of Present Illness Date Patient Seen: 12/05/20 Time Patient Seen: 14:29 Chief complaint: UTC Narrative: The patient presents for colorectal sreening. They have never had any previous examination for such. No personal or family history of colon cancer. On further history denies any recent gastrointestinal symptoms other than chronic constipation. No nausea, vomiting, abdominal pain, loss of appetite, unexplained weight loss, change in bowel habits, diarrhea, melena, hematochezia, or bright red blood per rectum. Patient History Medical History Arthritis Constipation Ganglion cyst of dorsum of right wrist Melanoma Numbness and tingling Sinusitis nasal Vertigo IVETT III (vulvar intraepithelial neoplasia III) Surgical History History of neck surgery History of sinus surgery Family & Social History Social History: household members friend(s) Tobacco & Substance use: Smoking Status Never smoker alcohol intake never Substance Use Type does not use Meds Home Medications and Allergies Home Medications Medication Instructions Recorded Confirmed Type lorazepam 0.25 mg PO Q DAY PRN #0 05/18/13 12/05/20 History cholecalciferol (vitamin D3) 25 mcg PO DAILY 12/05/20 12/05/20 History [Vitamin D3] clobetasol See Rx Instructions .ROUTE .COMPLEX 12/05/20 12/05/20 History estradiol 1 g VAGINAL 3XW 12/05/20 12/05/20 History multivitamin-calcium carb-iron 1 tab PO DAILY 12/05/20 12/05/20 History [Nature's Bounty 1] zinc 25 mg PO DAILY 12/05/20 12/05/20 History Allergies Allergy/AdvReac Type Severity Reaction Status Date / Time erythromycin base Allergy Unknown Swelling Verified 12/05/20 13:43 [ERYTHROMYCIN BASE] of the Eye Sulfa (Sulfonamide Allergy Unknown Verified 05/07/18 15:11 Antibiotics) [SULFA (SULFONAMIDE ANTIBIOTICS)] bee venom protein (honey bee) Allergy Verified 12/05/20 13:43 methylprednisolone Allergy SWELLING Verified 12/05/20 13:43 [From Depo-Medrol] sulfamethoxazole Allergy Swelling Verified 12/05/20 13:43 [From Septra] of Lip/Tongue/Throat trimethoprim [From Septra] Allergy Swelling Verified 12/05/20 13:43 of Lip/Tongue/Throat codeine AdvReac Headache Verified 12/05/20 13:43 Review of Systems Review of Systems ROS: Yes All systems reviewed with the patient and are negative except as otherwise documented Exam Vital Signs (past 8 hours): - 12/05/20 14:02 Temperature 98.7 F Pulse Rate 80 Respiratory Rate 16 Blood Pressure 138/72 Pulse Oximetry 99 Oxygen Delivery Method Room Air Oxygen Flow Rate 0 Narrative Exam Narrative: GENERAL-well developed adult woman, no acute distress HEENT-no scleral icterus, hearing intact NECK-no JVD, trachea midline CVS- regular rate, no peripheral edema RESP-unlabored respiratory effort, no audible wheezing GI-soft, nontender nondistended MSK-no cyanosis or clubbing, extremities without deformity SKIN-warm, dry NEURO-alert and oriented, no focal deficits PYSCH-Appropriate mood and affect Assessment & Plan Assessment & Plan narrative: The patient requires colorectal screening and colonoscopy is recommended. Technical details were discussed. Risks, benefits, alternatives explained. Risks including but not limited to myocardial infarction, aspiration, bleeding, pain, missed lesion, incomplete examination, need for further radiographic studies, colonic perforation, and need for major abdominal surgery were discussed. All questions were answered to their satisfaction, and they are in agreement with this plan.
[2020-12-05] MEDS: MIDAZOLAM 5 MG/5 ML VIAL IV (14:34)
[2020-12-05] MEDS: fentaNYL 250 MCG/5 ML INJ IV (14:34)
--- NOTE | 2020-12-05 15:05 | PM.OP.ENDO ---
Operative Date/Time/Diagnoses Date of procedure: 12/05/20 Time of procedure: 15:06 Pre-op diagnosis: screening colonoscopy Post-op diagnosis: same Procedure & Clinicians Study performed: colonscopy Same procedure as scheduled: Yes Indications: screening colonoscopy Surgeon: Jamey Loomis Procedure Notes Procedure in detail: Medications: Conscious sedation using 5 mg IV midazolam and 150 mcg IV of fentanyl The history and physical was performed/updated and the patient is ASA class is 2. The procedure was discussed in detail with the patient. Potential risks complications including infection, bleeding, missed diagnosis, perforation, need for surgery, and were explained. Their questions were answered and informed consent was obtained. Patient was brought to the procedure room and placed standard monitoring equipment. The patient's vital signs were monitored continuously throughout the entire procedure. Prior to starting time-out was performed. The patient was placed in the left lateral recumbent position. Procedural sedation was administered. Examination began with a thorough inspection of the perianal area there was no evidence of fissures, fistulae, external hemorrhoids or cutaneous malignancy. The colonoscopy scope was then placed into the anal canal and was advanced to the cecum, which was identified by the ileocecal valve, the appendiceal orifice and the confluence of the taenia. The scope was then slowly withdrawn examining colon thoroughly in all directions, irrigating it of any residual stool. 1. No masses or polyps 2. Grade 1 internal hemorrhoids The patient tolerated the procedure well. They will be discharged once criteria are met. The prep was of good/excellent quality. The withdrawl time was 8 minutes. The sedation time was 27 minutes. Specimen(s): none sent Complications: none Impression: Normal colonoscopy Post-procedure Recommendations: Colonscopy in 10 years Disposition: same day surgery
[2020-12-05 15:08] VITALS: BP 133/74; PULSE 71; RESP 12; TEMP 36.5; O2SAT 96
[2020-12-05 15:13] VITALS: BP 116/69; PULSE 68; RESP 14; O2SAT 96
[2020-12-05 15:18] VITALS: BP 108/61; PULSE 64; RESP 20; TEMP 36.5; O2SAT 97
--- NOTE | 2020-12-05 15:22 | SUR.PHASEI ---
1508 - Pt received to PACU after colonoscopy with sedation. Report from JED Blakely.
[2020-12-05 15:45] VITALS: BP 94/59; PULSE 64; RESP 16; TEMP 36.8; O2SAT 100
--- NOTE | 2020-12-05 15:59 | SUR.PHASEII ---
Pt up steady on feet. DC to home with friend.
== END 2020-12-05 15:59 | disposition home or self-care (01) ==
PROVIDERS: PCP Family Medicine; Referring Provider Family Medicine; Visit Provider Surgery
PROC: 0DJD8ZZ Inspection of Lower Intestinal Tract, Via Natural or Artificial Opening Endoscopic (ICD-10-PCS; CPT 45378; principal; 2020-12-05 14:30)
DX: Z12.11 Encounter for screening for malignant neoplasm of colon (principal); K64.0 First degree hemorrhoids
CPT/HCPCS: G0121; 99152; J2250; J3010

== ENCOUNTER → 2021-02-06 11:22 | Outpatient (CLI) | payer MEDICARE, OTHER, SELFPAY ==
--- NOTE | 2021-02-06 11:25 | DI.ECHO.S_ITS ---
[facility] +---------+ [facility] +---------+ : : [address] : [address] : : : : [id number] : : : : Phone: [phone]+ Echocardiogram Report + + :Name: DIDI JUDGE Study Date: 02/06/2021 Height: 66 in : :[facility] ReadingLocation: Weight: 200 lb : : Gender: Female BSA: 2.0 m2 : :: 1955 Age: 65 yrs BP: 128/90 mmHg: :Reason For Study: Palpitations : :Ordering Physician: ZOHAIB, : :ANDRE Corey Performed By: Ian Orozco : :Referring: ANDRE PENNY : + + Interpretation Summary Left ventricular systolic function is normal. The ejection fraction is estimated to be 60-65%. There is no significant valvular heart disease. Procedure: A two-dimensional transthoracic echocardiogram with color flow and Doppler was performed. The study quality was technically adequate. There is no prior echocardiogram noted for this patient. The patient was in sinus rhythm with heart rates between 56-63 bpm during the exam. Left Ventricle: The left ventricle is normal in size and wall thickness. Left ventricular systolic function is normal. The ejection fraction is estimated to be 60-65%. There are no focal wall motion abnormalities. Diastolic parameters suggest probable normal left ventricular diastolic function and normal filling pressures. Right Ventricle: The right ventricle is normal in size and function. Atria: Both atria are normal in size. There is no Doppler evidence for an interatrial shunt. Mitral Valve: The mitral valve is normal in structure and function. There is trace mitral regurgitation. Aortic Valve: The aortic valve is normal in structure and function. No aortic regurgitation is present. Tricuspid Valve: The tricuspid valve is normal in structure and function. There is a trace or physiologic amount of tricuspid regurgitation. Pulmonary artery pressures cannot be estimated because of the lack of a measurable TR jet velocity but the IVC suggests a CVP of around 3 mmHg. Pulmonic Valve: The pulmonic valve is not well seen, but is grossly normal. There is no pulmonic valvular regurgitation. Great Vessels: The aortic root is normal size. The dimensions of the ascending aorta are normal. The IVC is of normal diameter and collapses greater than 50% with a sniff. This suggests a low right atrial pressure of 3 mm Hg. Pericardium/ Pleura There is no pericardial effusion. There is no pleural effusion. MMode/2D Measurements & Calculations LVIDd: 5.0 cm LVOT diam: 2.0 cm LVIDs: 3.2 cm Ao root diam: 2.9 cm FS: 35.6 % IVSd: 0.77 cm LVPWd: 0.58 cm LV weinstein. diameter/BSA (cm/m^2): 2.5 LV sys. diameter/BSA (cm/m^2): 1.6 LA A2 area: 14.8 cm2 RA long axis: 5.1 cm LA A4 area: 17.9 cm2 RA area: 16.1 cm2 LA length (vol): 4.8 cm RA vol: 43.1 ml LA vol: 46.6 ml RA : 21.6 ml/m2 LA vol index: 23.3 ml/m2 RVD1 (basal): 2.7 cm TAPSE: 2.0 cm Doppler Measurements & Calculations Ao V2 max: 134.6 cm/sec LVOT Max Kevan: 102.8 cm/sec Ao V2 mean: 94.9 cm/sec LV V1 max P.2 mmHg Ao max P.3 mmHg LV V1 VTI: 23.7 cm Ao mean P.0 mmHg ASHLY(I,D): 2.7 cm2 Ao V2 VTI: 28.7 cm ASHLY(V,D): 2.5 cm2 sev ratio: 0.83 ASHLY indexed to BSA (cm^2/m^2): 1.3 MV E max kevan: 83.5 cm/sec PA V2 max: 100.0 cm/sec MV A max kevan: 64.3 cm/sec PA V2 mean: 70.4 cm/sec MV E/A: 1.3 PA mean P.2 mmHg Med Peak E' Kevan: 10.5 cm/sec PA pr(Accel): 36.4 mmHg E/E' med: 7.9 Lat Peak E' Kevan: 13.1 cm/sec E/E' lat: 6.4 E/e' average: 7.2 MV dec time: 0.21 sec SV(LVOT): 77.3 ml Reading Physician:04:15 PM
--- NOTE | 2021-02-06 11:25 | DI.US.S_ITS ---
PROCEDURE: US PELVIC COMPLETE INDICATIONS: Epigastric pain Palpitations TECHNIQUE: Real-time scanning was performed of the pelvic organs, with image documentation. Additional endovaginal scanning was necessary due to incomplete visualization of the adnexal and endometrial structures by transabdominal scanning. COMPARISON: [facility], , US PELVIC COMPLETE, 08/23/2020, 11:25. FINDINGS: Uterus: Uterus is anteverted and normal in size at 9.7 x 2.9 x 5.1 cm. There is a heterogeneous, hypoechoic right mid subserosal fibroid measuring 2.9 cm. The endometrium measures approximately three mm in combined thickness. Ovaries: The ovaries were not well seen by transvaginal imaging. By transabdominal imaging, the demonstrate normal morphology. The right measures 1.7 x 1.2 x 1.6 cm and the left measures 2.5 x 1.7 x 1.6 cm. No dominant mass or cyst. Other: No pathologic free abdominal or pelvic fluid. IMPRESSION: 1. Single 2.9 cm right uterine fibroid, similar compared to the prior study. 2. Etiology of pelvic pain is not otherwise seen. Dictated by: Helene Ramirez M.D. on 02/06/2021 at 15:55 Approved by: Helene Ramirez M.D. on 02/06/2021 at 15:57
== END ==
PROVIDERS: PCP Family Medicine; Referring Provider Family Medicine; Visit Provider Family Medicine
DX: R00.2 Palpitations (principal); R10.13 Epigastric pain; D25.2 Subserosal leiomyoma of uterus; R10.2 Pelvic and perineal pain
CPT/HCPCS: 76830; 76856; 93306

== ENCOUNTER → 2021-07-04 10:26 | Outpatient (CLI) | payer MEDICARE, OTHER, SELFPAY ==
--- NOTE | 2021-07-04 | DI.RAD.S_ITS ---
PROCEDURE: XR ANKLE RT MIN 3V INDICATIONS: Pain in right ankle and joints of right foot TECHNIQUE: 3 views of the ankle were acquired. COMPARISON: [facility], PAM, FOOT 2V RIGHT, 04/26/2014, 10:01. [facility], CR, XR ANKLE LT MIN 3V, 09/05/2018, 12:57. FINDINGS: Bones: No fractures or dislocations. Ankle mortise is normally aligned. Ovoid lesion in the fibula, most consistent with fibrocystic change or posttraumatic injury. Calcaneal enthesophytes. Mild osteophytosis about the midfoot. Soft tissues: No tibiotalar joint effusion. Achilles tendon appears normal. IMPRESSION: No acute osseous abnormality. Dictated by: Bud Dean M.D. on 07/04/2021 at 11:30 Approved by: Bud Dean M.D. on 07/04/2021 at 11:33
--- NOTE | 2021-07-04 | DI.RAD.S_ITS ---
PROCEDURE: XR HIP W PEL IF DONE LT 2V INDICATIONS: Pain in right ankle and joints of right foot TECHNIQUE: AP pelvis with lateral view(s) of the left hip(s). COMPARISON: [facility], , XR HIP W PEL IF DONE LT 2V, 01/26/2019, 12:19. FINDINGS: Bones: No fractures or dislocations. Pelvic ring appears intact. No suspicious bony lesions. 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 Soft tissues: The visualized bowel gas pattern is normal. No suspicious soft tissue calcifications. 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 Dictated by: Alison De La Fuente MD, PhD on 07/04/2021 at 17:42 Approved by: Alison De La Fuente MD, PhD on 07/04/2021 at 17:43
--- NOTE | 2021-07-04 | DI.RAD.S_ITS ---
PROCEDURE: XR LUMBAR SPINE 2-3V INDICATIONS: Pain in right ankle and joints of right foot TECHNIQUE: 3 views of the lumbar spine were acquired. COMPARISON: [facility], CR, XR LUMBAR SPINE 2-3V, 01/26/2019, 12:19. FINDINGS: Bones: 5 yet-qca-esijkxq vertebrae are present. There is normal bony alignment. No vertebral body compression fractures. No suspicious bony lesions. Multilevel disc space narrowing and degenerative endplate changes are seen. Facet hypertrophy is seen at L4-5 and L5-S1. Soft tissues: Overlying bowel gas pattern is normal. No suspicious soft tissue calcifications. IMPRESSION: No acute osseous abnormality. Hehx-sd-amrczzfh spondylosis. Dictated by: Diego Shrestha M.D. on 07/04/2021 at 13:05 Approved by: Diego Shrestha M.D. on 07/04/2021 at 13:06
== END ==
PROVIDERS: PCP Family Medicine; Referring Provider Family Medicine; Visit Provider Family Medicine
DX: M47.816 Spondylosis without myelopathy or radiculopathy, lumbar region (principal); M47.817 Spondylosis without myelopathy or radiculopathy, lumbosacral region; M16.0 Bilateral primary osteoarthritis of hip; M46.1 Sacroiliitis, not elsewhere classified; M25.571 Pain in right ankle and joints of right foot; M54.50 Low back pain, unspecified; M25.552 Pain in left hip
CPT/HCPCS: 72100; 73502; 73610

== ENCOUNTER → 2021-09-30 11:31 | Outpatient (CLI) | payer MEDICARE, OTHER, SELFPAY ==
--- NOTE | 2021-09-30 | DI.RAD.S_ITS ---
PROCEDURE: XR HAND LT MIN 3V INDICATIONS: Pain in left hand TECHNIQUE: 3 views of the hand(s) acquired. COMPARISON: [facility], CR, XR HAND LT MIN 3V, 03/03/2018, 8:19. [facility], CR, XR HAND 3+ VIEWS LEFT, 09/17/2021, 20:53. FINDINGS: Bones: No fractures or dislocations. Carpal bones are normally aligned. No suspicious bony lesions. Moderate to severe 1st CMC degenerative narrowing with subchondral sclerosis and areas of periarticular lucency. Otherwise, scattered IP degenerative narrowing is present. Soft tissues: No suspicious soft tissue calcifications. IMPRESSION: Prominent 1st CMC arthritic change. Dictated by: Michela Reaves M.D. on 09/30/2021 at 18:20 Approved by: Michela Reaves M.D. on 09/30/2021 at 18:20
== END ==
PROVIDERS: PCP Family Medicine; Referring Provider Family Medicine; Visit Provider Family Medicine
DX: M79.642 Pain in left hand (principal)
CPT/HCPCS: 73130

== ENCOUNTER → 2021-12-16 10:16 | Outpatient (CLI) | payer MEDICARE, OTHER, SELFPAY ==
--- NOTE | 2021-12-16 | DI.MG.S_ITS ---
BILATERAL DIGITAL SCREENING MAMMOGRAM 3D/2D WITH CAD: 12/16/2021 CLINICAL: Routine screening. Family history of breast cancer. Comparison is made to exams dated: 11/07/2020 mammogram, 02/17/2020 mammogram, and 01/21/2019 mammogram - [facility]. There are scattered fibroglandular elements in both breasts. Current study was also evaluated with a Computer Aided Detection (CAD) system. No significant masses, calcifications, or other findings are seen in either breast. There has been no significant interval change. IMPRESSION: NEGATIVE There is no mammographic evidence of malignancy. A 1 year screening mammogram is recommended. This exam was interpreted at Station ID: [id number]. NOTE: For mammograms, a report in lay terms will be sent to the patient. Approximately 15% of breast malignancies will not be visualized mammographically. In the management of a palpable breast mass, a negative mammogram must not discourage biopsy of a clinically suspicious lesion. Electronically Signed By: Beth carter/lelia:12/16/2021 12:46:55 letter sent: Normal Exam ACR BI-RADS Category 1: Negative [id number]
== END ==
PROVIDERS: PCP Family Medicine; Referring Provider Family Medicine; Visit Provider Family Medicine
DX: Z12.31 Encounter for screening mammogram for malignant neoplasm of breast (principal); Z80.3 Family history of malignant neoplasm of breast
CPT/HCPCS: 77063; 77067

== ENCOUNTER 2022-03-08 06:28 | Emergency (ER) | payer MEDICARE, OTHER, SELFPAY ==
[2022-03-08] VITALS (7 sets, daily range): BP systolic 99–152; BP diastolic 55–127; PULSE 58–161; RESP 16–23; TEMP 36.6; O2SAT 96–98; BMI 31.4
--- NOTE | 2022-03-08 06:43 | DI.RAD.S_ITS ---
PROCEDURE: XR CHEST 1V INDICATIONS: chest pain TECHNIQUE: One view of the chest was acquired. COMPARISON: [facility], , CHEST 2 VIEW, 05/18/2013, 9:22. FINDINGS: Surgical changes and devices: None. Overlying EKG wires. Lungs and pleura: Slightly low lung volumes with crowding of the bronchovascular markings. No pleural effusions or pneumothorax. Mediastinum: Mediastinal contours appear normal. Heart size is normal. Bones and chest wall: No suspicious bony lesions. Overlying soft tissues appear unremarkable. IMPRESSION: Low lung volumes causing crowding of the bronchovascular markings, otherwise no evidence of an acute cardiopulmonary abnormality. Agree with preliminary report. Dictated by: Juan Manuel Cunningham D.O. on 03/08/2022 at 6:36 Approved by: Juan Manuel Cunningham D.O. on 03/08/2022 at 6:37
[2022-03-08 06:50] LABS: Add Manual Diff / Slide Review NO; Basophils Absolute Auto 200 /uL (0-100); Eosinophils Absolute Auto 300 /uL (0-450); Eosinophils Percent Auto 2.8 % (2-4); Hematocrit 44.2 % (36-46); Hemoglobin 14.8 g/dL (12.0-16.0); Lymphocytes Absolute Auto 3000 /uL (1100-4500); Lymphocytes Percent Auto 28.8 % (25-40); Mean Corpuscular HGB Conc 33.5 % (30-36); Mean Corpuscular Hemoglobin 29.4 PG (26-34); Mean Corpuscular Volume 87.9 fL (80-100); Monocytes Absolute Auto 600 /uL (0-900); Monocytes Percent Auto 6.1 % (3-14); Neutrophils Absolute Auto 6200 /uL (1500-7000); Neutrophils Percent Auto 60.3 % (50-75); Platelet Count 245 X10^3/uL (150-400); Red Blood Cell Count 5.02 X10^6/uL (4.0-5.2); Red Cell Distribution Width 13.6 % (11.6-14.8); White Blood Cell Count 10.3 X10^3/uL (4.5-11.0)
[2022-03-08 06:57] LABS: Alanine Aminotransferase 18 IU/L (<35); Albumin 4.6 g/dL (3.5-5.0); Albumin Globulin Ratio 1.3 (1.0-2.8); Alkaline Phosphatase 70 U/L (38-126); Aspartate Aminotransferase 25 IU/L (14-36); BUN Creatinine Ratio 19.5 (6-22); Bilirubin Total 0.7 mg/dL (0.2-1.3); Blood Urea Nitrogen 16 mg/dL (7-17); Calcium 9.7 mg/dL (8.4-10.2); Carbon Dioxide 25 mmol/L (22-32); Chloride 109 mmol/L (98-107); Creatine Kinase 106 U/L (30-135); Estimated Glomerular Filt Rate > 60 mL/min (>60); Globulin 3.6 g/dL (1.7-4.1); Glucose 128 mg/dL (80-110); HEMOLYSIS < 15 (0-50); Lipase 113 U/L (23-300); Magnesium 2.1 mg/dL (1.6-2.3); Sodium 142 mmol/L (137-145); Total Protein 8.2 g/dL (6.3-8.2)
--- NOTE | 2022-03-08 06:59 | ED_ITS ---
HPI - Arrhythmia/Palpitations <Mich Weissan, DO - Last Filed: 03/21/22 07:48> General Chief Complaint: Arrhythmia/Palpitations Stated Complaint: chest pain Time Seen by Provider: 03/08/22 06:48 Source: patient Mode of arrival: Ambulatory History of Present Illness HPI narrative: 67F nonsmoker with a history of atrial fibrillation, anticoagulated on Eliquis and managed by Cardiology in [place] presents with a chief complaint of rapid heart rate, chest pressure and shortness of breath since 10:30 last night. She feels a bit dizzy and lightheaded as well as fatigued in his found her heart rate to be as high as the 160s. She denies any fever chills. She denies any recent dietary change. In the past few weeks she has changed her dosing regimen of metoprolol, 1st increasing from 25-50 mg daily but then moving her dose to the evening because she was having a hard time dealing with the daytime fatigue. Otherwise she is been on a stable regimen of medications and states that she is been on Eliquis for multiple months and has not missed a single dose. Related Data Home Medications Medication Instructions Recorded Confirmed lorazepam 0.5 mg tablet 0.25 mg PO Q DAY PRN ##0 05/18/13 12/05/20 cholecalciferol (vitamin D3) 25 25 mcg PO DAILY 12/05/20 12/05/20 mcg (1,000 unit) capsule (Vitamin D3) clobetasol 0.05 % topical ointment See Rx Instructions .Route .COMPLEX 12/05/20 12/05/20 estradiol 0.01% (0.1 mg/gram) 1 g vaginal 3XW 12/05/20 12/05/20 vaginal cream multivitamin with calcium carb and 1 tab PO DAILY 12/05/20 12/05/20 iron tablet zinc 25 mg tablet 25 mg PO DAILY 12/05/20 12/05/20 Allergies Allergy/AdvReac Type Severity Reaction Status Date / Time erythromycin base Allergy Unknown Swelling Verified 12/05/20 13:43 [ERYTHROMYCIN BASE] of the Eye Sulfa (Sulfonamide Allergy Unknown Verified 05/07/18 15:11 Antibiotics) [SULFA (SULFONAMIDE ANTIBIOTICS)] bee venom protein (honey bee) Allergy Verified 12/05/20 13:43 methylprednisolone Allergy SWELLING Verified 12/05/20 13:43 [From Depo-Medrol] sulfamethoxazole Allergy Swelling Verified 12/05/20 13:43 [From Septra] of Lip/Tongue/Throat trimethoprim [From Septra] Allergy Swelling Verified 12/05/20 13:43 of Lip/Tongue/Throat codeine AdvReac Headache Verified 12/05/20 13:43 Review of Systems <Mich Teague DO - Last Filed: 03/21/22 07:48> Review of Systems Narrative: GENERAL: Denies chills, fatigue, malaise, fever, sweats. HEENT: Denies sinus pain, ear pain, sore throat, difficulty swallowing, dizziness. RESPIRATORY: See HPI CARDIOVASCULAR: See HPI GASTROINTESTINAL: Denies nausea, vomiting, abdominal pain, diarrhea, constipation, melena. : Denies dysuria, frequency, incontinence, hematuria, urinary retention. MUSCULOSKELETAL: denies weakness, joint pain, or bony pain SKIN: Denies rash, skin lesions, or other NEUROLOGIC: Denies weakness, headache, numbness, change in speech, confusion, seizures, incoordination. PSYCHIATRIC: No concerning psychosocial issues. 12 point review of systems is negative except for those stated above Patient History <Mich Teague DO - Last Filed: 03/21/22 07:48> Medical History Arthritis Constipation Ganglion cyst of dorsum of right wrist Melanoma Numbness and tingling Sinusitis nasal Vertigo IVETT III (vulvar intraepithelial neoplasia III) Surgical History History of neck surgery History of sinus surgery Social History household members: friend(s) Smoking Status: Never smoker alcohol intake: never Smoking Status: Never smoker Substance Use Type: does not use Exam <DO Brian Cruz Last Filed: 03/21/22 07:48> Narrative Exam Narrative: GENERAL: [67] year old patient appears stated age. Well-developed patient, in mild distress. HEAD: Atraumatic. Normocephalic. EYES: Pupils equal round and reactive. Extraocular motions intact. No scleral icterus. No injection or drainage. ENT: Nose without bleeding, purulent drainage. Throat without erythema, tonsilla r hypertrophy or exudate. Airway patent. NECK: Trachea midline. Non tender CARDIOVASCULAR: Tachycardic and irregular rhythm without murmurs, gallops, or rubs. RESPIRATORY: Faint crackles in bilateral bases GASTROINTESTINAL: Abdomen soft, non-tender, nondistended. EXTREMITIES: No edema or joint tenderness. BACK: Nontender without deformity or crepitance. No flank tenderness. NEURO: AOx3. SKIN: No rash or erythema of visible areas Initial Vital Signs Initial Vital Signs: Vital Signs Temperature 98 F 03/08/22 06:37 Pulse Rate 161 H 03/08/22 06:37 Respiratory Rate 23 03/08/22 06:37 Blood Pressure 152/127 H 03/08/22 06:37 Pulse Oximetry 98 03/08/22 06:37 Oxygen Delivery Method 03/08/22 06:37 <Tono Campbell MD - Last Filed: 03/08/22 08:00> Initial Vital Signs Initial Vital Signs: Vital Signs Temperature 98 F 03/08/22 06:37 Pulse Rate 161 H 03/08/22 06:37 Respiratory Rate 23 03/08/22 06:37 Blood Pressure 152/127 H 03/08/22 06:37 Pulse Oximetry 98 03/08/22 06:37 Oxygen Delivery Method 03/08/22 06:37 Course <Mich Teague DO - Last Filed: 03/21/22 07:48> Orders Ordered: Discontinued Medications Propofol (Propofol 200 Mg/20 Ml Vial) 90 mg 1 mg/kg (90 mg) IV NOW ONE Stop: 03/08/22 06:49 Reevaluation(s) Reevaluation #1: Initially attempted modified Valsalva maneuver without success. Patient was consented for procedural sedation and cardioversion and while connecting her she is spontaneously converted to normal sinus rhythm, not surprisingly she became asymptomatic at this point Vital Signs Vital signs: Vital Signs - 8 hr 03/08/22 06:37 03/08/22 06:50 03/08/22 07:27 Temperature 98 F Pulse Rate 161 H 161 H 59 L Respiratory Rate 23 23 20 Blood Pressure 152/127 H Pulse Oximetry 98 96 Oxygen Delivery Method Room Air 03/08/22 07:29 03/08/22 07:29 03/08/22 07:30 Temperature Pulse Rate 58 L Respiratory Rate 16 Blood Pressure 99/55 L 104/58 L Pulse Oximetry 96 Oxygen Delivery Method 03/08/22 07:30 Temperature Pulse Rate 59 L Respiratory Rate 19 Blood Pressure Pulse Oximetry 96 Oxygen Delivery Method <Tono Campbell MD - Last Filed: 03/08/22 08:00> Orders Ordered: Discontinued Medications Propofol (Propofol 200 Mg/20 Ml Vial) 90 mg 1 mg/kg (90 mg) IV NOW ONE Stop: 03/08/22 06:49 Consultations Consultation #1: Spoke with Dr. Ga at 7:50 a.m. who recommends increase metoprolol to 50 mg b.i.d. and close outpatient follow-up to discuss other treatments. Vital Signs Vital signs: Vital Signs - 8 hr 03/08/22 06:37 03/08/22 06:50 03/08/22 07:27 Temperature 98 F Pulse Rate 161 H 161 H 59 L Respiratory Rate 23 23 20 Blood Pressure 152/127 H Pulse Oximetry 98 96 Oxygen Delivery Method Room Air 03/08/22 07:29 03/08/22 07:29 03/08/22 07:30 Temperature Pulse Rate 58 L Respiratory Rate 16 Blood Pressure 99/55 L 104/58 L Pulse Oximetry 96 Oxygen Delivery Method 03/08/22 07:30 Temperature Pulse Rate 59 L Respiratory Rate 19 Blood Pressure Pulse Oximetry 96 Oxygen Delivery Method MDM - Arrhythmia/Palpitations <Mich Teague DO - Last Filed: 03/21/22 07:48> Lab Data Result diagrams: 03/08/22 06:40 03/08/22 06:40 Labs: Lab Results 03/08/22 03/08/22 Range/Units 06:40 06:40 WBC 10.3 (4.5-11.0) X10^3/uL RBC 5.02 (4.0-5.2) X10^6/uL Hgb 14.8 (12.0-16.0) g/dL Hct 44.2 (36-46) % MCV 87.9 (80-100) fL MCH 29.4 (26-34) PG MCHC 33.5 (30-36) % RDW 13.6 (11.6-14.8) % Plt Count 245 (150-400) X10^3/uL Neut % (Auto) 60.3 (50-75) % Lymph % (Auto) 28.8 (25-40) % [place] % (Auto) 6.1 (3-14) % Eos % (Auto) 2.8 (2-4) % Baso % (Auto) 2.0 (0-2) % Neut # (Auto) 6200 (2166-8782) /uL Lymph # (Auto) 3000 (8507-6787) /uL Kenedy # (Auto) 600 (0-900) /uL Eos # (Auto) 300 (0-450) /uL Baso # (Auto) 200 H (0-100) /uL Sodium 142 (137-145) mmol/L Potassium 4.0 (3.4-5.1) mmol/L Chloride 109 H (98-107) mmol/L Carbon Dioxide 25 (22-32) mmol/L BUN 16 (7-17) mg/dL Creatinine 0.82 (0.52-1.04) mg/dL Estimated GFR > 60 (>60) mL/min BUN/Creatinine Ratio 19.5 (6-22) Glucose 128 H (80-110) mg/dL Calcium 9.7 (8.4-10.2) mg/dL Magnesium 2.1 (1.6-2.3) mg/dL Total Bilirubin 0.7 (0.2-1.3) mg/dL AST 25 (14-36) IU/L ALT 18 (<35) IU/L Alkaline Phosphatase 70 (38-126) U/L Total Creatine Kinase 106 (30-135) U/L CK-MB (CK-2) 1.60 (<2.37) ng/mL CK-MB (CK-2) Rel Index 1.5 (1.5-5.0) % Troponin I < 0.012 (0.01-0.034) ng/mL Total Protein 8.2 (6.3-8.2) g/dL Albumin 4.6 (3.5-5.0) g/dL Globulin 3.6 (1.7-4.1) g/dL Albumin/Globulin Ratio 1.3 (1.0-2.8) Lipase 113 (23-300) U/L <Tono Campbell MD - Last Filed: 03/08/22 08:00> Lab Data Labs: Lab Results 03/08/22 03/08/22 Range/Units 06:40 06:40 WBC 10.3 (4.5-11.0) X10^3/uL RBC 5.02 (4.0-5.2) X10^6/uL Hgb 14.8 (12.0-16.0) g/dL Hct 44.2 (36-46) % MCV 87.9 (80-100) fL MCH 29.4 (26-34) PG MCHC 33.5 (30-36) % RDW 13.6 (11.6-14.8) % Plt Count 245 (150-400) X10^3/uL Neut % (Auto) 60.3 (50-75) % Lymph % (Auto) 28.8 (25-40) % K[place]y % (Auto) 6.1 (3-14) % Eos % (Auto) 2.8 (2-4) % Baso % (Auto) 2.0 (0-2) % Neut # (Auto) 6200 (5481-9739) /uL Lymph # (Auto) 3000 (8365-3455) /uL Kenedy # (Auto) 600 (0-900) /uL Eos # (Auto) 300 (0-450) /uL Baso # (Auto) 200 H (0-100) /uL Sodium 142 (137-145) mmol/L Potassium 4.0 (3.4-5.1) mmol/L Chloride 109 H (98-107) mmol/L Carbon Dioxide 25 (22-32) mmol/L BUN 16 (7-17) mg/dL Creatinine 0.82 (0.52-1.04) mg/dL Estimated GFR > 60 (>60) mL/min BUN/Creatinine Ratio 19.5 (6-22) Glucose 128 H (80-110) mg/dL Calcium 9.7 (8.4-10.2) mg/dL Magnesium 2.1 (1.6-2.3) mg/dL Total Bilirubin 0.7 (0.2-1.3) mg/dL AST 25 (14-36) IU/L ALT 18 (<35) IU/L Alkaline Phosphatase 70 (38-126) U/L Total Creatine Kinase 106 (30-135) U/L CK-MB (CK-2) 1.60 (<2.37) ng/mL CK-MB (CK-2) Rel Index 1.5 (1.5-5.0) % Troponin I < 0.012 (0.01-0.034) ng/mL Total Protein 8.2 (6.3-8.2) g/dL Albumin 4.6 (3.5-5.0) g/dL Globulin 3.6 (1.7-4.1) g/dL Albumin/Globulin Ratio 1.3 (1.0-2.8) Lipase 113 (23-300) U/L Imaging Data Chest x-ray: Radiologist's Impresson: Preliminary report. Impression Low inspiration with central vascular crowding and subsegmental atelectasis No acute cardiopulmonary disease Electronically signed at 7:07 a.m. on March 08, 2022 by John Patel [facility] Narrative Medical decision making narrative: This patient came to the emergency department with atrial fibrillation symptoms and diagnosed on the EKG. Laboratory x-ray evaluation is reassuring. While setting up for cardioversion the patient spontaneously converted into a sinus rh ythm. She remains in a sinus rhythm at this time and looks well. Her symptoms have resolved. Will change medications according to the recommendation from Dr. Duque above. Discharge Plan Departure Patient Disposition: Home Clinical Impression: Atrial fibrillation Instructions: DI for Atrial Fibrillation Activity Restrictions/Additional Instructions: Thank you for coming to the ER today for care. I recommend continue metoprolol succinate 50 mg at bedtime and I recommend you add 25 mg every morning. Call the cardiology practitioner tomorrow morning to discuss other adjustments as appropriate. If atrial fibrillation returns, it is okay to take an additional 50 mg metoprolol 1 time to see if this will help heart rate come back under control. If you have severe symptoms such as shortness of breath or chest pain or fainting, you should call 911 and return to the emergency department for further evaluation. Prescriptions: No Action lorazepam 0.5 MG tablet 0.25 mg PO Q DAY PRN Qty: 0 zinc 25 mg Tablet 25 mg PO DAILY clobetasol 0.05 % ointment See Rx Instructions .ROUTE .COMPLEX Rx Instructions: 1 applic topically, THREE TIMES AWEEK FOR LICHEN SCLEROSIS estradiol 0.01 % (0.1 mg/gram) Cream 1 g VAGINAL 3XW cholecalciferol (vitamin D3) [Vitamin D3] 25 mcg (1,000 unit) Capsule 25 mcg PO DAILY multivitamin-calcium carb-iron Tablet 1 tab PO DAILY Referrals: Dominic Hutchins MD [Primary Care Provider] - Visit Report Forms: Patient Portal/API
--- NOTE | 2022-03-08 07:02 | PC.NURSE ---
Pt self-converted to NSR at this time. Provider and this RN at bedside for this. Staff were preparing for cardioversion as pt converted and reported feeling better.
[2022-03-08 07:08] LABS: Troponin I < 0.012 ng/mL (0.01-0.034)
[2022-03-08 07:12] LABS: CKMB % Relative Index 1.5 % (1.5-5.0)
== END 2022-03-08 08:16 | disposition home or self-care (01) ==
PROVIDERS: Emergency Medicine; Emergency Provider Family Medicine Addiction Medicine; PCP Family Medicine
DX: I48.91 Unspecified atrial fibrillation (principal); R06.02 Shortness of breath
CPT/HCPCS: 36415; 71045; 80053; 82550; 82553; 83690; 83735; 84484; 85025; 93005; 93010; 99283; 99284

== ENCOUNTER → 2022-05-14 09:14 | Outpatient (CLI) | payer MEDICARE, OTHER, SELFPAY ==
--- NOTE | 2022-05-14 | DI.RAD.S_ITS ---
PROCEDURE: XR HIP W PEL IF DONE LT 2V INDICATIONS: pain TECHNIQUE: 2 views of the hip were acquired. COMPARISON: [facility], , XR HIP W PEL IF DONE LT 2V, 07/04/2021, 10:30. FINDINGS: Bones: No fractures or dislocations. No suspicious bony lesions. The visualized pelvic ring appears intact. Bilateral hip mild joint space narrowing and small marginal osteophytes Soft tissues: No suspicious soft tissue calcifications or masses. IMPRESSION: Mild bilateral hip osteoarthritis, stable Approved by: Sylvester Moore M.D. on 05/14/2022 at 12:34
--- NOTE | 2022-05-14 | DI.RAD.S_ITS ---
PROCEDURE: XR CERVICAL SPINE 2V OR 3V INDICATIONS: pain TECHNIQUE: 3 view(s) of the cervical spine were acquired. COMPARISON: [facility], CR, XR CERVICAL SPINE 4V OR 5V, 05/04/2018, 15:07. FINDINGS: Bones: No fractures or dislocations to the C7 level. The lateral masses of C1 appear intact on the odontoid view. No suspicious bony lesions. C4-5 and C5-6 discectomy and fusion shows good graft incorporation. Anterior plate and screw instrumentation remains unchanged from the prior exam. There is slight reversal normal cervical lordosis and disc space narrowing at C3-4 with hypertrophic facet joints associated. Soft tissues: No prevertebral soft tissue swelling. IMPRESSION: Slightly increased degenerative changes at C3-4. C4-5 and C5-6 anterior cervical discectomy and fusion Approved by: Sylvester Moore M.D. on 05/14/2022 at 12:50
--- NOTE | 2022-05-14 | DI.RAD.S_ITS ---
PROCEDURE: XR LUMBAR SPINE 2-3V INDICATIONS: Low back pain, unspecified TECHNIQUE: 3 views of the lumbar spine were acquired. COMPARISON: [facility], , XR LUMBAR SPINE 2-3V, 07/04/2021, 10:30. FINDINGS: Bones: 5 cgv-kwf-rakatlp vertebrae are present. There is normal bony alignment. No vertebral body compression fractures. No suspicious bony lesions. Disc space narrowing and hypertrophic facet joints present throughout the exam particularly in the lower lumbar spine Soft tissues: Overlying bowel gas pattern is normal. No suspicious soft tissue calcifications. Moderate fecal debris throughout the colon IMPRESSION: 1. Multilevel degenerative disc disease and arthropathy particularly in the lower lumbar spine, stable from the prior Approved by: Sylvester Moore M.D. on 05/14/2022 at 12:32
== END ==
PROVIDERS: PCP Family Medicine; Referring Provider Family Medicine; Visit Provider Family Medicine
DX: M47.812 Spondylosis without myelopathy or radiculopathy, cervical region (principal); M16.0 Bilateral primary osteoarthritis of hip; M51.36 Other intervertebral disc degeneration, lumbar region; M47.816 Spondylosis without myelopathy or radiculopathy, lumbar region; M54.2 Cervicalgia; M54.50 Low back pain, unspecified; M25.512 Pain in left shoulder; Z98.1 Arthrodesis status
CPT/HCPCS: 72040; 72100; 73502

== ENCOUNTER → 2022-05-24 10:14 | Outpatient (CLI) | payer MEDICARE, OTHER, SELFPAY ==
--- NOTE | 2022-05-24 10:18 | DI.MRI.S_ITS ---
PROCEDURE: MR CERVICAL SPINE WO CON INDICATIONS: Cervicalgia; Low back pain TECHNIQUE: Noncontrast sagittal T1 spin echo and T2 fast spin echo, sagittal STIR, foraminal oblique sagittal T2 fast spin echo, and axial gradient echo or T2 fast spin echo through the cervical spine. COMPARISON: [facility], MR, MR CERVICAL SPINE WO CON, 04/16/2020, 17:02. [facility], MR, MR LUMBAR SPINE WO CON, 05/24/2022, 11:50. [facility], MR, MR CERVICAL SPINE WO CON, 03/09/2018, 7:50. FINDINGS: Image quality: Diagnostic, with note made of motion artifact. There is artifact associated with the metallic hardware. Alignment and Curvature: There is straightening of the normal cervical lordosis. There is minimal anterolisthesis seen at the C3-C4, C6-C7, and C7-T1 levels. Bone Marrow: Marrow demonstrates normal overall signal. Spinal Cord: Visualized spinal cord has normal size and signal. No cerebellar tonsillar herniation. Paraspinous Soft Tissues: No paravertebral masses. Prevertebral soft tissues are normal in thickness. Fusion changes are seen anteriorly from C4 through C6. C2-C3: The disc height is well-preserved. Loss of disc signal is seen at this level. A mild degree of generalized disc osteophyte complex is seen. Moderate facet joint hypertrophy is seen. Minimal bilateral neural foraminal narrowing can be seen. No significant central canal narrowing is seen. When comparison is made with the prior images, these findings are similar. C3-C4: Mild loss of disc height is seen. Loss of disc signal is seen. At least moderate disc osteophyte complex is seen, which is eccentric to the right. Moderate facet hypertrophy is seen, right worse than left. There is moderate to severe right-sided and at least moderate left-sided neural foraminal narrowing. Mild to moderate central canal narrowing is seen. Stable from the prior study. C4-C5: Pzwf-me-nffuzkvt disc osteophyte complex is seen. Mild facet joint hypertrophy is seen. There is moderate left-sided and mild right-sided neural foraminal narrowing. No significant central canal narrowing is seen. When comparison is made with the prior images, these findings are similar. C5-C6: Dltb-mt-yfwzkedw disc osteophyte complex is seen. Moderate facet joint hypertrophy is seen. There is oujk-gs-azjgvcep bilateral neural foraminal narrowing seen. Minimal central canal narrowing is seen. When comparison is made with the prior images, these findings are similar. C6-C7: Moderate loss of disc height is seen. Loss of disc signal is seen. Mild to moderate disc osteophyte complex is seen. There is mild right-sided and moderate left-sided facet hypertrophy. There is moderate to severe right-sided and at least moderate left-sided neural foraminal narrowing. Mild central canal narrowing is seen. When comparison is made with the prior images, these findings are similar. C7-T1: Mmek-ff-ujbcqxrg loss of disc height and disc signal can be seen. Mild to moderate disc osteophyte complex is seen, which is eccentric to the left. Mild facet joint hypertrophy is seen. There is mild left-sided and no significant right-sided neural foraminal narrowing. When comparison is made with the prior images, these findings are similar. IMPRESSION: Anterior fixation hardware is seen C4 through C6. Multiple levels of degenerative change are seen, which are similar to the prior MRI. Dictated by: Andrés Devi M.D. on 05/25/2022 at 11:48 Approved by: Andrés Devi M.D. on 05/25/2022 at 11:56
--- NOTE | 2022-05-24 11:57 | DI.MRI.S_ITS ---
PROCEDURE: MR LUMBAR SPINE WO CON INDICATIONS: Cervicalgia; Low back pain TECHNIQUE: Noncontrast sagittal T1 spin echo and T2 fast echo, sagittal STIR, and T2 fast spin echo through the lumbar spine. In cases with scoliosis, additional coronal T2 fast spin echo may be performed. COMPARISON: [facility], MR, L-SPINE WITHOUT CONTRAST, 01/08/2014, 17:24. [facility], MR, MR CERVICAL SPINE WO CON, 05/24/2022, 11:19. [facility], CR, XR LUMBAR SPINE 2-3V, 05/14/2022, 9:33. FINDINGS: Image quality: Diagnostic Alignment and Curvature: There is minimal retrolisthesis seen at the L1-L2 level. Bone Marrow: Marrow is of normal overall signal. No acute vertebral body compression fractures. Spinal Cord: Conus medullaris terminates at the L1 level. Visualized cord demonstrates normal signal and size. Paraspinous Soft Tissues: No paravertebral masses. T11-T12: Gola-uh-abnttxvt loss of disc height and disc signal can be seen. No significant neural foraminal or central canal narrowing can be seen. These imaging findings have progressed compared to the prior study. T12-L1: Unxq-ab-iftvymui loss of disc height and disc signal can be seen. Mild disc bulge is seen, which is eccentric to the right. No significant neural foraminal or central canal narrowing can be seen. These imaging findings have progressed compared to the prior study. L1-L2: Moderate loss of disc height is seen. Loss of disc signal is seen. Reactive marrow endplate changes are seen which are hypointense on T1-weighted imaging and hyperintense on T2 weighted imaging, which is most consistent with edema (Modic type I changes). Mild to moderate disc bulge is seen, with a central disc protrusion. There is vahl-wa-qkxdnzje left-sided and no significant right-sided neural foraminal narrowing. No significant central canal narrowing is seen. These degenerative changes are worse than in 2014. L2-L3: The disc height is well-preserved. Loss of disc signal is seen at this level. Mild to moderate disc bulge is seen. Mild facet joint hypertrophy is seen. No significant neural foraminal or central canal narrowing can be seen. When comparison is made with the prior images, these findings are similar. L3-L4: The disc height is well-preserved. Loss of disc signal is seen at this level. Moderate disc bulge is seen, which is eccentric to the right. Mild to moderate facet hypertrophy is seen. Minimal to mild bilateral neural foraminal narrowing can be seen. Minimal central canal narrowing is seen. These imaging findings have progressed compared to the prior study. L4-L5: Mild loss of disc height is seen. Loss of disc signal is seen. Mild to moderate disc bulge is seen. Moderate facet joint hypertrophy is seen. Moderate bilateral neural foraminal narrowing is seen. Mild central canal narrowing is seen. When comparison is made with the prior images, these findings are similar. L5-S1: Mild loss of disc height is seen. Loss of disc signal is seen. Mild generalized disc bulge is seen. Mild facet joint hypertrophy is seen. Mild bilateral neural foraminal narrowing is seen. No significant central canal narrowing is seen. When comparison is made with the prior images, these findings are similar. IMPRESSION: Multiple levels of lumbar spine degenerative change are seen, which are progressed at L1-L2 and L3-L4 compared to 2014. Dictated by: Andrés Devi M.D. on 05/25/2022 at 11:56 Approved by: Andrés Devi M.D. on 05/25/2022 at 12:01
== END ==
PROVIDERS: PCP Family Medicine; Referring Provider Family Medicine; Visit Provider Family Medicine
DX: M47.816 Spondylosis without myelopathy or radiculopathy, lumbar region (principal); M54.50 Low back pain, unspecified; M54.2 Cervicalgia; M47.812 Spondylosis without myelopathy or radiculopathy, cervical region; Z98.1 Arthrodesis status
CPT/HCPCS: 72141; 72148

== ENCOUNTER → 2023-04-22 08:22 | Outpatient (CLI) | payer MEDICARE, OTHER, SELFPAY ==
--- NOTE | 2023-04-22 | DI.MG.S_ITS ---
BILATERAL DIGITAL SCREENING MAMMOGRAM 3D/2D WITH CAD: 04/22/2023 CLINICAL: Routine screening. Family history of breast cancer. Comparison is made to exams dated: 12/16/2021 mammogram, 11/07/2020 mammogram, and 02/17/2020 mammogram - [facility]. There are scattered areas of fibroglandular density in both breasts (category b / 25%-50% glandular tissue). Current study was also evaluated with a Computer Aided Detection (CAD) system. No significant masses, calcifications, or other findings are seen in either breast. There has been no significant interval change. IMPRESSION: NEGATIVE There is no mammographic evidence of malignancy. A 1 year screening mammogram is recommended. Based on the Tyrer Cuzick model (a risk assessment model) the patient's lifetime risk is 4.4% and her 10 year risk is 2.6%. According to the ACR, ACS, and NCCN guidelines, an annual breast MRI exam along with mammogram is recommended if the patient's lifetime risk is 20% or greater. This exam was interpreted at Station ID: [id number]. NOTE: For mammograms, a report in lay terms will be sent to the patient. Approximately 15% of breast malignancies will not be visualized mammographically. In the management of a palpable breast mass, a negative mammogram must not discourage biopsy of a clinically suspicious lesion. Electronically Signed By: Jocy johnson/lelia:04/22/2023 15:02:34 letter sent: Normal Exam ACR BI-RADS Category 1: Negative [id number]
== END ==
PROVIDERS: PCP Family Medicine; Referring Provider Family Medicine; Visit Provider Family Medicine
DX: Z12.31 Encounter for screening mammogram for malignant neoplasm of breast (principal); Z80.3 Family history of malignant neoplasm of breast
CPT/HCPCS: 77063; 77067

== ENCOUNTER → 2023-05-27 08:31 | Outpatient (CLI) | payer MEDICARE, OTHER, SELFPAY ==
--- NOTE | 2023-05-27 | DI.US.S_ITS ---
PROCEDURE: US ABDOMEN COMPLETE INDICATIONS: Abdominal pain TECHNIQUE: Real-time scanning was performed of the abdominal and retroperitoneal organs, with image documentation. COMPARISON: [facility], US, US ABDOMEN COMPLETE, 09/05/2018, 13:13. FINDINGS: Liver: Liver is normal in size and demonstrates increased echotexture. Gallbladder: No gallstones. No gallbladder wall thickening, pericholecystic fluid or sonographic Henry's sign. Biliary ducts: Intrahepatic bile ducts are non-dilated. Extrahepatic bile duct caliber measures 4 mm. Normal is 6-7 mm or less in diameter, or 10 mm or less post-cholecystectomy. Pancreas: Visualized portions of the pancreas are sonographically normal. Spleen: Spleen is normal in size and homogeneous in echotexture. Kidneys: Kidneys are normal in size and echotexture. Right kidney measures 11.6 cm long; left kidney measures 10.8 cm long. No hydronephrosis or nephrolithiasis. No solid masses. Aorta: Visualized aorta is normal in caliber at less than 3 cm. Iliacs: Not visualized. IVC: Intrahepatic inferior vena cava is patent. Miscellaneous: No free abdominal fluid. IMPRESSION: 1. Diffusely increased hepatic echotexture. This finding is most likely secondary to hepatic fatty infiltration although other hepatocellular disease may have a similar appearance. Recommend clinical correlation. 2. Otherwise unremarkable abdominal ultrasound exam. A cause for abdominal pain is not identified. Dictated by: Ru Amaya M.D. on 05/27/2023 at 12:59 Approved by: Ru Amaya M.D. on 05/27/2023 at 13:02
== END ==
PROVIDERS: PCP Family Medicine; Referring Provider Family Medicine; Visit Provider Family Medicine
DX: R10.9 Unspecified abdominal pain (principal)
CPT/HCPCS: 76700

== ENCOUNTER → 2023-06-10 12:49 | Outpatient (CLI) | payer MEDICARE, OTHER, SELFPAY ==
--- NOTE | 2023-06-10 12:55 | DI.RAD.S_ITS ---
PROCEDURE: XR KNEE RT 3V INDICATIONS: RIGHT KNEE PAIN TECHNIQUE: 3 views of the knee were acquired. COMPARISON: None. FINDINGS: Bones: No fractures or dislocations. No suspicious bony lesions. Mild tricompartmental osteoarthritis with osseous hypertrophy. Soft tissues: No joint effusion. No suspicious soft tissue calcifications. IMPRESSION: Mild right knee tricompartmental osteoarthritis. Dictated by: Alison De La Fuente MD, PhD on 06/10/2023 at 13:59 Approved by: Alison De La Fuente MD, PhD on 06/10/2023 at 14:00
== END ==
PROVIDERS: PCP Family Medicine; Referring Provider Family Medicine; Visit Provider Family Medicine
DX: M25.561 Pain in right knee (principal); M17.11 Unilateral primary osteoarthritis, right knee
CPT/HCPCS: 73562

== ENCOUNTER → 2023-06-30 08:32 | Outpatient (CLI) | payer MEDICARE, OTHER, SELFPAY ==
--- NOTE | 2023-06-30 | DI.MRI.S_ITS ---
PROCEDURE: MR KNEE RT WO CON INDICATIONS: PAIN IN RIGHT KNEE TECHNIQUE: Noncontrast sagittal PD fast spin echo and T2 fast spin echo with fat saturation, sagittal 3-D FLASH with fat saturation; coronal T1 spin echo and PD fast spin echo with fat saturation, and axial PD fast spin echo with fat saturation through the knee. COMPARISON: [facility], CR, XR KNEE RT 3V, 06/10/2023, 12:59. FINDINGS: Image quality: Excellent. Menisci: Linear horizontal high T2 signal intensity traverses the inner, middle, and peripheral thirds of the medial meniscal body and posterior horn, demonstrating inferior articular surface extension, indicating horizontal tearing. There is linear oblique high T2 signal intensity traversing the inner and middle thirds of the lateral meniscal body, demonstrating inferior articular surface extension, indicating oblique tearing. Cruciate ligaments: The anterior and posterior cruciate ligaments appear intact. Medial structures: The medial collateral ligament appears intact. Visualized portions of the pes anserinus tendons appear normal. There is partial-thickness tearing of the semimembranosus tendon at the tibial insertion site. No abnormal bursal fluid. Lateral structures: The lateral collateral ligament, long and short heads of the biceps femoris tendon appear intact. The popliteus tendon appears normal. Iliotibial band appears normal. Anterior structures: The quadriceps and patellar tendons appear intact. Mild T2 signal elevation within the quadriceps and patellar tendons at the patellar insertion sites. Patellar alignment is normal. No femoral trochlear dysplasia or ventral trochlear prominence. No edema in the infrapatellar fat pad. Bones and cartilage: No bone marrow contusions or fractures. Moderate tricompartmental periarticular osteophyte formation. Severe articular cartilage loss diffusely overlies the weight-bearing aspects of the medial femoral condyle and medial tibial plateau as well as the lateral patellar facet and patellar apex. Joint space: There is a small knee joint effusion and a small Joseph's cyst. Small ganglion cyst along the popliteus. Normal appearing synovial plicae are incidentally noted. IMPRESSION: 1. Tricompartmental osteoarthritis with associated articular cartilage loss. 2. Medial meniscal and lateral meniscal tearing. 3. Knee joint effusion and Joseph's cyst. 4. Quadriceps and patellar tendinopathy. 5. Partial-thickness tearing of the semimembranosus tendon. Dictated by: Pepe Betancur M.D. on 06/30/2023 at 10:24 Approved by: Pepe Betancur M.D. on 06/30/2023 at 10:27
== END ==
PROVIDERS: PCP Family Medicine; Referring Provider Family Medicine; Visit Provider Family Medicine
DX: M25.561 Pain in right knee (principal); M17.11 Unilateral primary osteoarthritis, right knee; S83.281A Other tear of lateral meniscus, current injury, right knee, initial encounter; S83.241A Other tear of medial meniscus, current injury, right knee, initial encounter; M25.461 Effusion, right knee; M71.21 Synovial cyst of popliteal space [Baker], right knee; S86.811A Strain of other muscle(s) and tendon(s) at lower leg level, right leg, initial encounter
CPT/HCPCS: 73721

== ENCOUNTER 2023-09-30 13:47 | Emergency (ER) | payer MEDICARE, OTHER, SELFPAY ==
[2023-09-30] VITALS (10 sets, daily range): BP systolic 114–181; BP diastolic 64–83; PULSE 52–64; RESP 17–31; TEMP 36.6; O2SAT 97–99; BMI 30.7
--- NOTE | 2023-09-30 13:57 | DI.RAD.S_ITS ---
PROCEDURE: XR CHEST 1V INDICATIONS: Shortness of breath TECHNIQUE: One view of the chest was acquired. COMPARISON: [facility], CR, XR CHEST 1V, 03/08/2022, 6:41. FINDINGS: Surgical changes and devices: Low anterior cervical fusion. Lungs and pleura: Mild patchy bilateral perihilar and right basilar opacity. No pleural effusions or pneumothorax. Mediastinum: Mediastinal contours appear normal. Heart size is normal. Bones and chest wall: No suspicious bony lesions. Overlying soft tissues appear unremarkable. IMPRESSION: Bilateral pneumonia. Dictated by: Pepe Betancur M.D. on 09/30/2023 at 15:19 Approved by: Pepe Betancur M.D. on 09/30/2023 at 15:19
[2023-09-30 14:16] LABS: Add Manual Diff / Slide Review NO; Basophils Absolute Auto 100 /uL (0-100); Basophils Percent Auto 0.9 % (0-2); Eosinophils Absolute Auto 300 /uL (0-450); Eosinophils Percent Auto 3.4 % (2-4); Hematocrit 37.8 % (36-46); Hemoglobin 12.6 g/dL (12.0-16.0); Lymphocytes Absolute Auto 2500 /uL (1100-4500); Lymphocytes Percent Auto 29.8 % (25-40); Mean Corpuscular HGB Conc 33.3 % (30-36); Mean Corpuscular Hemoglobin 29.3 PG (26-34); Mean Corpuscular Volume 87.9 fL (80-100); Monocytes Absolute Auto 600 /uL (0-900); Monocytes Percent Auto 6.8 % (3-14); Neutrophils Absolute Auto 5000 /uL (1500-7000); Neutrophils Percent Auto 59.1 % (50-75); Platelet Count 236 X10^3/uL (150-400); Red Cell Distribution Width 13.8 % (11.6-14.8); White Blood Cell Count 8.5 X10^3/uL (4.5-11.0)
[2023-09-30 14:24] LABS: INR 1.2 (0.9-1.3); Prothrombin Time 14.1 SECONDS (9.4-12.5)
[2023-09-30 14:30] LABS: Lactate (Lactic Acid) 0.9 mmol/L (0.7-2.1)
--- NOTE | 2023-09-30 14:38 | ED_ITS ---
HPI - SOB/Dyspnea General Chief Complaint: Shortness of Breath/Dyspnea Stated Complaint: had ablation, difficulty breathing Time Seen by Provider: 09/30/23 14:35 Source: patient Mode of arrival: Ambulatory Limitations: no limitations History of Present Illness HPI Narrative: 68-year-old female had an ablation for atrial fibrillation 4 days going [place]. She says she has had some chest pressure and dyspnea with exertion since then also feels lightheaded and off balance. She has had any focal numbness or weakness, does not have exertional chest pain or diaphoresis. She was told that there would be some symptoms similar to this following her ablation but was concerned and wanted to be evaluated. She is taking metoprolol and flecainide is also on anticoagulation with Eliquis. She has not had fevers, she has some postnasal drip and a mild cough. Related Data Home Medications Medication Instructions Recorded Confirmed lorazepam 0.5 mg tablet 0.25 mg PO Q DAY PRN ##0 05/18/13 12/05/20 cholecalciferol (vitamin D3) 25 25 mcg PO DAILY 12/05/20 12/05/20 mcg (1,000 unit) capsule (Vitamin D3) clobetasol 0.05 % topical ointment See Rx Instructions .Route .COMPLEX 12/05/20 12/05/20 estradiol 0.01% (0.1 mg/gram) 1 g vaginal 3XW 12/05/20 12/05/20 vaginal cream multivitamin with calcium carb and 1 tab PO DAILY 12/05/20 12/05/20 iron tablet zinc 25 mg tablet 25 mg PO DAILY 12/05/20 12/05/20 Allergies Allergy/AdvReac Type Severity Reaction Status Date / Time erythromycin base Allergy Unknown Swelling Verified 12/05/20 13:43 [ERYTHROMYCIN BASE] of the Eye Sulfa (Sulfonamide Allergy Unknown Verified 05/07/18 15:11 Antibiotics) [SULFA (SULFONAMIDE ANTIBIOTICS)] bee venom protein (honey bee) Allergy Verified 12/05/20 13:43 methylprednisolone Allergy SWELLING Verified 12/05/20 13:43 [From Depo-Medrol] sulfamethoxazole Allergy Swelling Verified 12/05/20 13:43 [From Septra] of Lip/Tongue/Throat trimethoprim [From Septra] Allergy Swelling Verified 12/05/20 13:43 of Lip/Tongue/Throat codeine AdvReac Headache Verified 12/05/20 13:43 Patient History Medical History Arthritis Constipation Ganglion cyst of dorsum of right wrist Melanoma Numbness and tingling Sinusitis nasal Vertigo IVETT III (vulvar intraepithelial neoplasia III) Surgical History History of neck surgery History of sinus surgery Social History household members: friend(s) Smoking Status: Never smoker alcohol intake: never Smoking Status: Never smoker Substance Use Type: does not use Exam Initial Vital Signs Initial Vital Signs: Vital Signs Temperature 97.8 F 09/30/23 13:49 Pulse Rate 61 09/30/23 13:49 Respiratory Rate 18 09/30/23 13:49 Blood Pressure 147/65 H 09/30/23 13:49 Pulse Oximetry 98 09/30/23 13:49 Oxygen Delivery Method Room Air 09/30/23 13:49 Const Other: Well-appearing, no acute distress HENMT Head: normocephalic and atraumatic Resp Effort & Inspection: normal respiratory effort and able to speak in complete sentences Auscultation: clear to auscultation bilaterally Cardio Other: Regular rhythm rate without murmur rub or gallop Skin Other: Warm and dry Neuro Other: Alert oriented no facial droop no nystagmus pupils are equal and reactive extraocular movements are intact motor is intact coordination is intact on beiarz-kkec-[id number] Course Orders Ordered: ED Orders 09/30/23 13:57 XR chest 1V Stat EKG-12 Lead Stat Measure peak expiratory flow ONCE RT Consult Eval and Treat NOW 09/30/23 14:04 Complete Blood Count AUTO DIFF Stat Lactate (Lactic Acid) Stat Prothrombin Time INR Stat 09/30/23 14:42 Comprehensive Metabolic Panel Stat NT-proBNP (BNP-Adult 18+) Stat Troponin I Stat 09/30/23 14:50 CT head/brain wo con Stat 09/30/23 16:03 EC echo limited Stat Consultations Consultation #1: Discussed with the on-call cardiology coverage [facility], elevated troponin is indeed expected in this setting, recommends an echocardiogram be checked to document there was no effusion Vital Signs Vital signs: Vital Signs - 8 hr 09/30/23 13:49 09/30/23 14:00 09/30/23 14:01 Temperature 97.8 F Pulse Rate 61 64 64 Respiratory Rate 18 17 Blood Pressure 147/65 H Pulse Oximetry 98 98 98 Oxygen Delivery Method Room Air 09/30/23 14:01 09/30/23 14:15 09/30/23 14:15 Temperature Pulse Rate 56 L Respiratory Rate 19 Blood Pressure 181/83 H 158/77 H Pulse Oximetry 99 Oxygen Delivery Method 09/30/23 14:30 09/30/23 14:30 09/30/23 15:03 Temperature Pulse Rate 59 L 57 L Respiratory Rate 25 H 22 Blood Pressure 150/76 H Pulse Oximetry 97 99 Oxygen Delivery Method 09/30/23 15:04 09/30/23 15:04 09/30/23 15:30 Temperature Pulse Rate 56 L Respiratory Rate 23 Blood Pressure 140/70 134/65 Pulse Oximetry 99 Oxygen Delivery Method 09/30/23 15:30 09/30/23 16:00 09/30/23 16:09 Temperature Pulse Rate 53 L 52 L Respiratory Rate 22 31 H Blood Pressure 114/64 Pulse Oximetry 98 99 Oxygen Delivery Method 09/30/23 16:09 Temperature Pulse Rate 56 L Respiratory Rate 25 H Blood Pressure Pulse Oximetry 97 Oxygen Delivery Method MDM - SOB/Dyspnea Lab Data Lab results narrative: CBC with diff and CMP are reassuring. INR is 1.2. Troponin is elevated consistent with recent ablation. ProBNP is minimally elevated I do not think this patient was in acute failure. 09/30/23 14:04 09/30/23 14:42 Labs: Lab Results 09/30/23 09/30/23 Range/Units 14:04 14:42 WBC 8.5 (4.5-11.0) X10^3/uL RBC 4.30 (4.0-5.2) X10^6/uL Hgb 12.6 (12.0-16.0) g/dL Hct 37.8 (36-46) % MCV 87.9 (80-100) fL MCH 29.3 (26-34) PG MCHC 33.3 (30-36) % RDW 13.8 (11.6-14.8) % Plt Count 236 (150-400) X10^3/uL Neut % (Auto) 59.1 (50-75) % Lymph % (Auto) 29.8 (25-40) % [place] % (Auto) 6.8 (3-14) % Eos % (Auto) 3.4 (2-4) % Baso % (Auto) 0.9 (0-2) % Neut # (Auto) 5000 (8687-2994) /uL Lymph # (Auto) 2500 (4071-5875) /uL [place] # (Auto) 600 (0-900) /uL Eos # (Auto) 300 (0-450) /uL Baso # (Auto) 100 (0-100) /uL PT 14.1 H (9.4-12.5) SECONDS INR 1.2 (0.9-1.3) Sodium 140 (137-145) mmol/L Potassium 3.9 (3.4-5.1) mmol/L Chloride 109 H (98-107) mmol/L Carbon Dioxide 30 (22-32) mmol/L BUN 13 (7-17) mg/dL Creatinine 0.74 (0.52-1.04) mg/dL Estimated GFR > 60 (>60) mL/min BUN/Creatinine Ratio 17.6 (6-22) Glucose 96 (80-110) mg/dL Lactate 0.9 (0.7-2.1) mmol/L Calcium 9.2 (8.4-10.2) mg/dL Total Bilirubin 0.7 (0.2-1.3) mg/dL AST 57 H (14-36) IU/L ALT 74 H (<35) IU/L Alkaline Phosphatase 62 (38-126) U/L Troponin I 1.200 H* (0.01-0.034) ng/mL NT-Pro-B Natriuret Pep 230 H (<125) pg/mL Total Protein 7.3 (6.3-8.2) g/dL Albumin 4.1 (3.5-5.0) g/dL Globulin 3.2 (1.7-4.1) g/dL Albumin/Globulin Ratio 1.3 (1.0-2.8) Imaging Data CT scan - head: My Impression: No acute finding Radiologist's Impression: Radiology reports no acute findings Chest x-ray: My Impression: No acute failure no acute infiltrate. Radiology interpretation is noted not clinically consistent with presentation Radiologist's Impression: Radiology reported mild bilateral infiltrates, ECG Data Interpretation: ECG shows normal sinus rhythm at 55 QRS duration is normal T-wave inversions in V1 and V2 no acute ST segment changes MDM Narrative Medical decision making narrative: 68-year-old female who feels lightheaded, has some dyspnea and chest tightness bony ablation for atrial fibrillation. Considered the possibility ischemic heart disease, pneumonia, pericardial effusion. Chest x-ray results not withstanding, clinical picture does not suggest pneumonia. Shared decision- making with the patient, I did not start any antibiotics. Workup is otherwise reassuring, patient is expected to be symptomatic after an ablation she is reassured and discharged home Discharge Plan Departure Patient Disposition: Home Clinical Impression: Dizziness Dyspnea Qualifiers: Dyspnea type: unspecified Qualified Code(s): R06.00 - Dyspnea, unspecified Activity Restrictions/Additional Instructions: Emergency department workup today is reassuring. We do not think that you have an acute problem requiring hospitalization or further emergent workup. Continue previous home medications, may use acetaminophen as needed for pain. Recheck if having increasing shortness of breath fevers or other acute symptoms. 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 Prescriptions: No Action lorazepam 0.5 MG tablet 0.25 mg PO Q DAY PRN Qty: 0 zinc 25 mg Tablet 25 mg PO DAILY clobetasol 0.05 % ointment See Rx Instructions .ROUTE .COMPLEX Rx Instructions: 1 applic topically, THREE TIMES AWEEK FOR LICHEN SCLEROSIS estradiol 0.01 % (0.1 mg/gram) Cream 1 g VAGINAL 3XW cholecalciferol (vitamin D3) [Vitamin D3] 25 mcg (1,000 unit) Capsule 25 mcg PO DAILY multivitamin-calcium carb-iron Tablet 1 tab PO DAILY Referrals: Dominic Hutchins MD [Primary Care Provider] - Stand Alone Forms: Patient Portal/API
--- NOTE | 2023-09-30 14:50 | DI.CT.S_ITS ---
PROCEDURE: CT HEAD/BRAIN WO CON INDICATIONS: dizzy, anticoagulated TECHNIQUE: Noncontrast 4.5 mm thick angled axial sections acquired from the foramen magnum to the vertex, with coronal and sagittal reformats. For radiation dose reduction, the following was used: automated exposure control, adjustment of mA and/or kV according to patient size. COMPARISON: [facility], CT, CT HEAD/BRAIN WO CON, 09/29/2019, 14:52. FINDINGS: Image quality: Diagnostic. CSF spaces: Basal cisterns are patent. No extra-axial fluid collections. The ventricles are symmetric in size and shape. Brain: No intracranial bleeds or masses. There is cerebral volume loss for age, with resultant ventricular and sulcal prominence. There are periventricular and deep white matter chronic small vessel ischemic changes. There is intracranial internal carotid artery atherosclerosis. Skull and face: Calvarium and visualized facial bones appear intact, without suspicious lesions. Sinuses: Visualized sinuses and mastoids are clear. IMPRESSION: No acute intracranial pathology. Dictated by: Pepe Betancur M.D. on 09/30/2023 at 15:20 Approved by: Pepe Betancur M.D. on 09/30/2023 at 15:21
[2023-09-30 15:16] LABS: Alanine Aminotransferase 74 IU/L (<35); Albumin 4.1 g/dL (3.5-5.0); Albumin Globulin Ratio 1.3 (1.0-2.8); Alkaline Phosphatase 62 U/L (38-126); Aspartate Aminotransferase 57 IU/L (14-36); BUN Creatinine Ratio 17.6 (6-22); Bilirubin Total 0.7 mg/dL (0.2-1.3); Blood Urea Nitrogen 13 mg/dL (7-17); Calcium 9.2 mg/dL (8.4-10.2); Carbon Dioxide 30 mmol/L (22-32); Chloride 109 mmol/L (98-107); Estimated Glomerular Filt Rate > 60 mL/min (>60); Globulin 3.2 g/dL (1.7-4.1); Glucose 96 mg/dL (80-110); HEMOLYSIS < 15 (0-50); Potassium 3.9 mmol/L (3.4-5.1); Sodium 140 mmol/L (137-145); Total Protein 7.3 g/dL (6.3-8.2)
[2023-09-30 15:27] LABS: NT-proBNP (BNP-Adult 18+) 230 pg/mL (<125)
--- NOTE | 2023-09-30 16:03 | DI.ECHO.S_ITS ---
[facility] +---------+ : : [address] : : : : [id number] : : : : Phone: [phone]+ Echocardiogram Report + + :Name: DIDI JUDGE Study Date: 09/30/2023 Height: 66 in : :[facility] ReadingLocation: Weight: 190 lb : : Gender: Female BSA: 2.0 m2 : :: 1955 Age: 68 yrs BP: 114/64 mmHg: :Reason For Study: PERICARDIAL EFFUSION : :Ordering Physician: VAMSHI, : :KATY Performed By: Razia Isidro : :Referring: KATY BONDS : + + Interpretation Summary The ejection fraction is estimated to be 60-65%. There is no pericardial effusion. Procedure: Images were not obtained from all of the standard acoustic windows due to the limited scope of the study. The study quality was technically adequate. Comparison is made with the echocardiogram of 02/06/2021. The patient was in sinus bradycardia with heart rates between 51- 63 bpm during the exam. Left Ventricle: The left ventricle is normal in size and wall thickness. The ejection fraction is estimated to be 60-65%. Great Vessels: The IVC is dilated (diameter is greater than 2.1 cm) yet it collapses greater than 50% with a sniff. This suggests a right atrial pressure of 8 mm Hg. Pericardium/ Pleura There is no pericardial effusion. There is no pleural effusion. MMode/2D Measurements & Calculations LVIDd: 4.9 cm IVC diam: 2.2 cm LVIDs: 3.2 cm FS: 34.8 % IVSd: 0.87 cm LVPWd: 0.95 cm LV weinstein. diameter/BSA (cm/m^2): 2.5 LV sys. diameter/BSA (cm/m^2): 1.6 Reading Physician:04:28 PM
== END 2023-09-30 17:39 | disposition home or self-care (01) ==
PROVIDERS: Emergency Provider Emergency Medicine; PCP Family Medicine
DX: R42 Dizziness and giddiness (principal); R06.00 Dyspnea, unspecified; R07.9 Chest pain, unspecified; R05.9 Cough, unspecified
CPT/HCPCS: 36415; 70450; 71045; 80053; 83605; 83880; 84484; 85025; 85610; 93005; 93307; 99284

== ENCOUNTER 2024-02-22 02:59 | Emergency (ER) | payer MEDICARE, OTHER, SELFPAY ==
[2024-02-22] VITALS (18 sets, daily range): BP systolic 106–161; BP diastolic 60–100; PULSE 49–130; RESP 13–45; TEMP 36.2; O2SAT 96–99; BMI 32.5
--- NOTE | 2024-02-22 03:11 | EKG_ITS ---
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
--- NOTE | 2024-02-22 03:16 | DI.RAD.S_ITS ---
PROCEDURE: XR CHEST 1V INDICATIONS: chest pain TECHNIQUE: One view of the chest was acquired. COMPARISON: None. FINDINGS: Surgical changes and devices: None. Lungs and pleura: Lungs are clear. No pleural effusions or pneumothorax. Mediastinum: Mediastinal contours appear normal. Heart is slightly enlarged. Pulmonary outflow tracts are prominent which be seen with pulmonary hypertension. Bones and chest wall: No suspicious bony lesions. Prior cervical anterior fusion. Overlying soft tissues appear unremarkable. IMPRESSION: Prominence of the pulmonary outflow tracts which can be seen with pulmonary artery hypertension. Dictated by: Derek Resendiz M.D. on 02/22/2024 at 8:24 Approved by: Derek Resendiz M.D. on 02/22/2024 at 8:49
--- NOTE | 2024-02-22 03:17 | ED_ITS ---
HPI - Arrhythmia/Palpitations General Chief Complaint: Arrhythmia/Palpitations Stated Complaint: afib Time Seen by Provider: 02/22/24 03:15 Source: patient Mode of arrival: Ambulatory History of Present Illness HPI narrative: 68-year-old female with history of atrial fibrillation 1st diagnosed November 2021, followed most recently by cardiology Dr. Sandoval at [place], taking Eliquis anticoagulation, had ablation procedure [place] September 2023, taking metoprolol XL and Eliquis and flecainide, wore ZIO patch monitors through the month of December, follow up appointment a few days ago Wednesday was told by a PA in [facility] [place] that monitor results were encouraging and then she was clear, could stop flecainide medication soon. She is still taking the flecainide, not yet discontinued. Tonight she woke up with palpitation fast heart rate sensation, and some chest tightness, thought maybe it was due to her CPAP machine, took the CPAP machine off, still felt that way, heart rate was increased. Here for further evaluation. She denies any fevers chills cough. She denies dizziness, syncope, near-syncope. She does not recall any cardiac catheterization, no known coronary artery disease. No history of blood clots to legs or lungs, no leg pain or swelling symptoms. Related Data Home Medications Medication Instructions Recorded Confirmed lorazepam 0.5 mg tablet 0.25 mg PO Q DAY PRN ##0 05/18/13 12/05/20 cholecalciferol (vitamin D3) 25 25 mcg PO DAILY 12/05/20 12/05/20 mcg (1,000 unit) capsule (Vitamin D3) clobetasol 0.05 % topical ointment See Rx Instructions .Route .COMPLEX 12/05/20 12/05/20 estradiol 0.01% (0.1 mg/gram) 1 g vaginal 3XW 12/05/20 12/05/20 vaginal cream multivitamin with calcium carb and 1 tab PO DAILY 12/05/20 12/05/20 iron tablet zinc 25 mg tablet 25 mg PO DAILY 12/05/20 12/05/20 Allergies Allergy/AdvReac Type Severity Reaction Status Date / Time erythromycin base Allergy Unknown Swelling Verified 12/05/20 13:43 [ERYTHROMYCIN BASE] of the Eye Sulfa (Sulfonamide Allergy Unknown Verified 05/07/18 15:11 Antibiotics) [SULFA (SULFONAMIDE ANTIBIOTICS)] bee venom protein (honey bee) Allergy Verified 12/05/20 13:43 methylprednisolone Allergy SWELLING Verified 12/05/20 13:43 [From Depo-Medrol] sulfamethoxazole Allergy Swelling Verified 12/05/20 13:43 [From Septra] of Lip/Tongue/Throat trimethoprim [From Septra] Allergy Swelling Verified 12/05/20 13:43 of Lip/Tongue/Throat codeine AdvReac Headache Verified 12/05/20 13:43 Patient History Medical History Arthritis Constipation Ganglion cyst of dorsum of right wrist Melanoma Numbness and tingling Sinusitis nasal Vertigo IVETT III (vulvar intraepithelial neoplasia III) Surgical History History of neck surgery History of sinus surgery Social History household members: friend(s) Smoking Status: Never smoker alcohol intake: never Smoking Status: Never smoker Substance Use Type: does not use Exam Initial Vital Signs Initial Vital Signs: Vital Signs Temperature 97.2 F L 02/22/24 03:08 Pulse Rate 130 H 02/22/24 03:08 Respiratory Rate 16 02/22/24 03:08 Blood Pressure 156/89 H 02/22/24 03:08 Pulse Oximetry 98 02/22/24 03:08 Oxygen Delivery Method Room Air 02/22/24 03:08 Course Orders Ordered: Discontinued Medications Aspirin (Aspirin 81 Mg Chew Tab) 324 mg PO NOW ONE Stop: 02/22/24 03:17 Last Admin: 02/22/24 04:14 Dose: Not Given Documented By: ARELIS Diltiazem HCl (Diltiazem 25 Mg/5 Ml Sdv) 10 mg IV NOW ONE Stop: 02/22/24 04:39 Last Admin: 02/22/24 05:05 Dose: 10 mg Documented By: ARELIS Sodium Chloride (Normal Saline 0.9%) 1,000 mls @ 500 mls/hr IV BOLUS ONE Stop: 02/22/24 05:15 Last Infusion: 02/22/24 05:51 Dose: Infused Documented By: Admin: 02/22/24 03:56 Dose: 500 mls/hr Documented By: ARELIS DILTIAZEM (Diltiazem 125 Mg/125 Ml-D5w) 125 mg in 125 mls @ 5 mls/hr IV TITRATE [facility]; Protocol Last Admin: 02/22/24 05:50 Dose: Not Given Documented By: ARELIS Metoprolol Tartrate (Metoprolol Tartrate 5 Mg/5 Ml Inj) 5 mg IV NOW ONE Stop: 02/22/24 03:16 Last Admin: 02/22/24 03:24 Dose: 5 mg Documented By: JODIE Metoprolol Tartrate (Metoprolol Tartrate 5 Mg/5 Ml Inj) 5 mg IV Q5M [facility] Stop: 02/22/24 03:51 Last Admin: 02/22/24 04:10 Dose: 5 mg Documented By: Admin: 02/22/24 03:56 Dose: 5 mg Documented By: ARELIS Vital Signs Vital signs: Vital Signs - 8 hr 02/22/24 03:08 02/22/24 03:18 02/22/24 03:29 Temperature 97.2 F L Pulse Rate 130 H 124 H 124 H Respiratory Rate 16 17 17 Blood Pressure 156/89 H Pulse Oximetry 98 97 99 Oxygen Delivery Method Room Air Room Air 02/22/24 03:29 02/22/24 03:30 02/22/24 03:30 Temperature Pulse Rate 124 H Respiratory Rate 15 Blood Pressure 145/90 H 139/93 H Pulse Oximetry 99 Oxygen Delivery Method Room Air 02/22/24 04:00 02/22/24 04:03 02/22/24 04:03 Temperature Pulse Rate 124 H 124 H Respiratory Rate 20 19 Blood Pressure 131/70 Pulse Oximetry 96 99 Oxygen Delivery Method Room Air Room Air 02/22/24 04:30 02/22/24 04:30 02/22/24 05:00 Temperature Pulse Rate 121 H 122 H Respiratory Rate 13 18 Blood Pressure 122/76 Pulse Oximetry 98 99 Oxygen Delivery Method Room Air 02/22/24 05:05 02/22/24 05:09 02/22/24 05:09 Temperature Pulse Rate 121 H 123 H Respiratory Rate 16 Blood Pressure 122/76 161/79 H Pulse Oximetry 99 Oxygen Delivery Method Room Air 02/22/24 05:14 02/22/24 05:14 02/22/24 05:30 Temperature Pulse Rate 69 49 L Respiratory Rate 23 25 H Blood Pressure 106/64 Pulse Oximetry 97 98 Oxygen Delivery Method Room Air 02/22/24 05:31 02/22/24 05:31 Temperature Pulse Rate 49 L Respiratory Rate 45 H Blood Pressure 154/100 H Pulse Oximetry 98 Oxygen Delivery Method Room Air MDM - Arrhythmia/Palpitations Lab Data Attestation: I reviewed the patient's lab results. 02/22/24 03:25 02/22/24 03:25 Labs: Lab Results 02/22/24 02/22/24 Range/Units 03:25 06:11 WBC 8.0 (4.5-11.0) X10^3/uL RBC 4.78 (4.0-5.2) X10^6/uL Hgb 14.1 (12.0-16.0) g/dL Hct 41.6 (36-46) % MCV 86.9 (80-100) fL MCH 29.5 (26-34) PG MCHC 33.9 (30-36) % RDW 14.0 (11.6-14.8) % Plt Count 222 (150-400) X10^3/uL Neut % (Auto) 63.9 (50-75) % Lymph % (Auto) 24.7 L (25-40) % Patrick % (Auto) 7.1 (3-14) % Eos % (Auto) 4.0 (2-4) % Baso % (Auto) 0.3 (0-2) % Neut # (Auto) 5100 (8537-9891) /uL Lymph # (Auto) 2000 (0093-1410) /uL Patrick # (Auto) 600 (0-900) /uL Eos # (Auto) 300 (0-450) /uL Baso # (Auto) 0 (0-100) /uL Sodium 139 (137-145) mmol/L Potassium 4.0 (3.4-5.1) mmol/L Chloride 110 H (98-107) mmol/L Carbon Dioxide 23 (22-32) mmol/L BUN 16 (7-17) mg/dL Creatinine 0.84 (0.52-1.04) mg/dL Estimated GFR > 60 (>60) mL/min BUN/Creatinine Ratio 19.0 (6-22) Glucose 123 H (80-110) mg/dL Calcium 9.3 (8.4-10.2) mg/dL Total Bilirubin 0.5 (0.2-1.3) mg/dL AST 24 (14-36) IU/L ALT 21 (<35) IU/L Alkaline Phosphatase 86 (38-126) U/L Total Creatine Kinase 82 (30-135) U/L Troponin I < 0.012 < 0.012 (0.01-0.034) ng/mL Total Protein 7.7 (6.3-8.2) g/dL Albumin 4.2 (3.5-5.0) g/dL Globulin 3.5 (1.7-4.1) g/dL Albumin/Globulin Ratio 1.2 (1.0-2.8) Lipase 117 (23-300) U/L Imaging Data Chest x-ray: Radiologist's Impresson: Chest x-ray single view. Impression: ?No acute findings. ? See teleradiology report Dr Vences ECG Data Attestation: I personally reviewed and interpreted this ECG as follows: Interpretation: 0311, atrial fibrillation with ventricular response rate 121, lateral ST segment depression, no obvious ST segment elevation changes. QRS 96, QTC 434. 0515, ventricular rate 64 decreased, there appear to be P waves preceding QRS complexes, suspect sinus bradycardia, favored over computer reading junctional rhythm. ST segment no longer depressed. QRS 96, QTC 398. MDM Narrative Medical decision making narrative: 68-year-old with history of atrial fibrillation, taking Eliquis and flecainide and metoprolol, ablation September 2023, recent ZIO patch monitoring reassuring in December, was going to stop her flecainide soon as per cardiology recommendations, tonight with chest pain and fast heart rate sensation and chest tightness. EKG and monitor shows atrial fibrillation with rapid ventricular response 120-130 range. Normotensive. No obvious ischemic change. Patient appears stable. Patient has had anticoagulation, could consider cardioversion but she seems stable, does not want cardioversion at this point, trial of rate control for now. IV metoprolol doses. Chest x-ray no acute changes. Labs pending. Troponin negative. IV metoprolol 5 mg x 3 doses, little change in rate, still 120. Chest discomfort gone, dyspnea improved. IV diltiazem added. No beds available here. Contact [facility] for possible transfer. Case discussed with [facility], patient had been reluctant to agree to cardioversion, so far unable to control her ventricular response rate in atrial fibrillation, she is anticoagulated with Eliquis, he advises trial of cardioversion if patient is willing, if not willing then discussed with transfer center. Patient now willing to attempt cardioversion. 0500, preparations were made for cardioversion but post-Dilt bolus converted to sinus rhythm, with initial sinus bradycardia 40, improved rate then 50-60s. Somewhat initially dizzy initially, then asymptomatic. We will further observe in the emergency department for now. She is not currently on diltiazem infusion. We will observe further to see if she reverts back into atrial fibrillation, or if she seems to stay in sinus rhythm, consider discharge in follow up with her anchorman Dr. Sandoval in [place]. 0630, still with adequate rate control, P waves present, sinus bradycardia 50-60 normotensive, asymptomatic. Ambulates without symptoms. Continue current regimen Xarelto, metoprolol, flecainide. Patient encouraged to follow up with her anchorman Dr Sandoval in [place]. Return precautions discussed. She would like to go home now today on her . Improved, stable, home with family Critical Care Time Critical Care Time Critical Care Time: Yes Total Critical Care Time: 45 Attestation: The high probability of a clinically significant, sudden or life threatening deterioration of the [cardiopulmonary,] system(s) required my full and direct attention, intervention and personal management. The aggregate critical care time was [45] minutes. This time is in addition to time spent performing reported procedures but includes the following: [x] Data Review and interpretation [x] Patient assessment and monitoring of vital signs [x] Documentation [x] Medication orders and management Discharge Plan Departure Patient Disposition: Home Clinical Impression: Atrial fibrillation with rapid ventricular response Activity Restrictions/Additional Instructions: History of atrial fibrillation, prior ablation procedure, more recently had ZIO patch cardiac monitoring which apparently was reassuring, plan was for you to be stopping flecainide medication soon, continuing on your metoprolol and blood thinner medications. However last night you had fast heart rate sensation with some shortness of breath and chest discomfort. EKG showed atrial fibrillation with rapid response rate, initially not responsive to IV metoprolol doses, IV diltiazem bolus was given. Use seemed initially not to respond to any these medications, were initially resistant to cardioversion, case discussed with cardiology on-call at [facility], who suggested cardioversion, plan was to initiate cardioversion when he seemed to convert to different rhythm, with sinus bradycardia slow rate. Serial blood tests showed no evidence for heart attack at this time. Electrolytes unremarkable. Continue your flecainide and metoprolol and Xarelto medications for now. Contact your regular anchorman Dr. Sandoval to arrange close follow up appointment. Return to this/nearest emergency department if any change worsening symptoms or any concerns prior Prescriptions: No Action lorazepam 0.5 MG tablet 0.25 mg PO Q DAY PRN Qty: 0 zinc 25 mg Tablet 25 mg PO DAILY clobetasol 0.05 % ointment See Rx Instructions .ROUTE .COMPLEX Rx Instructions: 1 applic topically, THREE TIMES AWEEK FOR LICHEN SCLEROSIS estradiol 0.01 % (0.1 mg/gram) Cream 1 g VAGINAL 3XW cholecalciferol (vitamin D3) [Vitamin D3] 25 mcg (1,000 unit) Capsule 25 mcg PO DAILY multivitamin-calcium carb-iron Tablet 1 tab PO DAILY Referrals: Dominic Hutchins MD [Primary Care Provider] - Stand Alone Forms: Patient Portal/API
[2024-02-22] MEDS: METOPROLOL TARTRATE 5 MG/5 ML INJ IV ×3 (03:24→04:10)
[2024-02-22 03:35] LABS: Add Manual Diff / Slide Review NO; Basophils Absolute Auto 0 /uL (0-100); Basophils Percent Auto 0.3 % (0-2); Eosinophils Absolute Auto 300 /uL (0-450); Hematocrit 41.6 % (36-46); Hemoglobin 14.1 g/dL (12.0-16.0); Lymphocytes Absolute Auto 2000 /uL (1100-4500); Lymphocytes Percent Auto 24.7 % (25-40); Mean Corpuscular HGB Conc 33.9 % (30-36); Mean Corpuscular Hemoglobin 29.5 PG (26-34); Mean Corpuscular Volume 86.9 fL (80-100); Monocytes Absolute Auto 600 /uL (0-900); Monocytes Percent Auto 7.1 % (3-14); Neutrophils Absolute Auto 5100 /uL (1500-7000); Neutrophils Percent Auto 63.9 % (50-75); Platelet Count 222 X10^3/uL (150-400); Red Blood Cell Count 4.78 X10^6/uL (4.0-5.2)
[2024-02-22 03:45] LABS: Alanine Aminotransferase 21 IU/L (<35); Albumin 4.2 g/dL (3.5-5.0); Albumin Globulin Ratio 1.2 (1.0-2.8); Alkaline Phosphatase 86 U/L (38-126); Aspartate Aminotransferase 24 IU/L (14-36); Bilirubin Total 0.5 mg/dL (0.2-1.3); Blood Urea Nitrogen 16 mg/dL (7-17); Calcium 9.3 mg/dL (8.4-10.2); Carbon Dioxide 23 mmol/L (22-32); Chloride 110 mmol/L (98-107); Creatine Kinase 82 U/L (30-135); Estimated Glomerular Filt Rate > 60 mL/min (>60); Globulin 3.5 g/dL (1.7-4.1); Glucose 123 mg/dL (80-110); HEMOLYSIS 18 (0-50); Lipase 117 U/L (23-300); Sodium 139 mmol/L (137-145); Total Protein 7.7 g/dL (6.3-8.2)
[2024-02-22] MEDS: SODIUM CHLORIDE 0.9% 1,000 ML 500 ML IV (03:56)
[2024-02-22 03:57] LABS: Troponin I < 0.012 ng/mL (0.01-0.034)
[2024-02-22] MEDS: dilTIAZem 25 MG/5 ML SDV 10 MG IV (05:05)
--- NOTE | 2024-02-22 05:15 | EKG_ITS ---
[id number] [address] Test Date: 2024-02-22 Pat Name: Manisha Travis Department: Room: Gender: Female Elevated Motorman: JESSIE : 1955 Requested By: Order Number: [id number] Reading MD: Delroy Andrew Measurements Intervals Riva Rate: 64 P: NE: QRS: 18 QRSD: 96 T: -2 QT: 386 QTc: 398 Interpretive Statements Junctional rhythm Nonspecific ST and T wave abnormality Electronically Signed On 02-24-2024 17:17:41 PDT by Delroy Andrew
--- NOTE | 2024-02-22 05:24 | PC.NURSE ---
This nurse was in the patient's room talking with the patient when the inside finisher began alarming asystole. patient became flushed and very short of breath. Patient's heart rate then dropped to 45bpm. Dr. Adan aware of episode, in the room to speak with patient. Patient will remain here for monitoring.
[2024-02-22 06:40] LABS: Troponin I < 0.012 ng/mL (0.01-0.034)
== END 2024-02-22 07:36 | disposition home or self-care (01) ==
PROVIDERS: Emergency Provider Emergency Medicine; PCP Family Medicine
DX: I48.20 Chronic atrial fibrillation, unspecified (principal); R07.9 Chest pain, unspecified; Z79.01 Long term (current) use of anticoagulants
CPT/HCPCS: 36415; 71045; 80053; 82550; 83690; 84484; 85025; 93005; 96361; 96374; 96375; 96376; 99284; 99285

== ENCOUNTER → 2024-06-27 11:03 | Outpatient (CLI) | payer MEDICARE, OTHER, SELFPAY ==
--- NOTE | 2024-06-27 11:04 | DI.MG.S_ITS ---
BILATERAL DIGITAL SCREENING MAMMOGRAM 3D/2D WITH CAD: 06/27/2024 CLINICAL: Routine screening. Family history of breast cancer. Comparison is made to exams dated: 04/22/2023 mammogram, 12/16/2021 mammogram, 11/07/2020 mammogram, 02/17/2020 mammogram, and 01/21/2019 mammogram - [facility]. There are scattered areas of fibroglandular density (category b / 25%-50% glandular tissue). Current study was also evaluated with a Computer Aided Detection (CAD) system. There are benign post operative findings in the left breast. No significant masses, calcifications, or other findings are seen in either breast. There has been no significant interval change. IMPRESSION: BENIGN There is no mammographic evidence of malignancy. A 1 year screening mammogram is recommended. Based on the Tyrer Cuzick model (a risk assessment model) the patient's lifetime risk is 4.2% and her 10 year risk is 2.6%. According to the ACR, ACS, and NCCN guidelines, an annual breast MRI exam along with mammogram is recommended if the patient's lifetime risk is 20% or greater. This exam was interpreted at Station ID: [id number]. NOTE: For mammograms, a report in lay terms will be sent to the patient. Approximately 15% of breast malignancies will not be visualized mammographically. In the management of a palpable breast mass, a negative mammogram must not discourage biopsy of a clinically suspicious lesion. Electronically Signed By: Jocy Hendricks M.D., Ph.D. candida/lelia:06/28/2024 18:20:34 letter sent: Normal Exam ACR BI-RADS Category 2: Benign
== END ==
PROVIDERS: PCP Family Medicine; Referring Provider Family Medicine; Visit Provider Family Medicine
DX: Z12.31 Encounter for screening mammogram for malignant neoplasm of breast (principal); Z80.3 Family history of malignant neoplasm of breast
CPT/HCPCS: 77063; 77067

== ENCOUNTER → 2024-11-28 08:08 | Outpatient (CLI) | payer MEDICARE, OTHER, SELFPAY ==
--- NOTE | 2024-11-28 08:09 | DI.US.S_ITS ---
PROCEDURE: US CAROTID DOPPLER BI INDICATIONS: Dizziness and giddiness TECHNIQUE: Color and pulse Doppler interrogation was performed of both carotid systems, with image documentation and velocity measurements. COMPARISON: None. FINDINGS: Stenosis calculations are based on SRU (Society of Radiologists in Ultrasound) criteria. The flow velocities and the arterial waveforms are normal within both carotid arterial systems. Minimal atherosclerotic plaque is seen. The estimated degree of internal carotid artery stenosis is less than 50%. Antegrade flow is confirmed within both vertebral arteries. IMPRESSION: No hemodynamically significant stenosis is seen. Dictated by: Andrés Devi M.D. on 11/28/2024 at 11:20 Approved by: Andrés Devi M.D. on 11/28/2024 at 11:20
--- NOTE | 2024-11-28 08:10 | DI.CT.S_ITS ---
PROCEDURE: CT HEAD/BRAIN WO CON INDICATIONS: Dizziness and giddiness TECHNIQUE: Noncontrast 4.5 mm thick angled axial sections acquired from the foramen magnum to the vertex, with coronal and sagittal reformats. For radiation dose reduction, the following was used: automated exposure control, adjustment of mA and/or kV according to patient size. COMPARISON: [facility], CT, CT HEAD/BRAIN WO CON, 09/30/2023, 15:03. FINDINGS: Image quality: Diagnostic. CSF spaces: Basal cisterns are patent. No extra-axial fluid collections. Ventricles are normal in size and shape. Brain: No midline shift. No intracranial mass effect or hemorrhage. Adams-white matter interface is normal. Skull and face: Calvarium and visualized facial bones are intact, without suspicious lesions. Sinuses: Visualized sinuses and mastoids are clear. IMPRESSION: No acute intracranial pathology. Approved by: Sylvester Moore M.D. on 11/28/2024 at 11:25
== END ==
LOC: US 08:09
PROVIDERS: PCP Family Medicine; Referring Provider Family Medicine; Visit Provider Family Medicine
DX: R42 Dizziness and giddiness (principal)
CPT/HCPCS: 70450; 93880

== ENCOUNTER → 2024-12-31 08:57 | Outpatient (CLI) | payer MEDICARE, OTHER, SELFPAY ==
--- NOTE | 2024-12-31 | DI.MRI.S_ITS ---
PROCEDURE: MR KNEE RT WO CON INDICATIONS: primary osteoarthritis right knee TECHNIQUE: Noncontrast sagittal PD fast spin echo and T2 fast spin echo with fat saturation, sagittal 3-D FLASH with fat saturation; coronal T1 spin echo and PD fast spin echo with fat saturation, and axial PD fast spin echo with fat saturation through the knee. COMPARISON: [facility], MR, MR KNEE RT WO CON, 06/30/2023, 8:53. FINDINGS: Image quality: Excellent. Menisci: There is increased irregularity of the medial meniscal margins, consistent with degenerative fraying. Linear horizontal high T2 signal intensity traverses the inner, middle, and peripheral thirds of the medial meniscal body and posterior horn as before, demonstrating superior articular surface extension, indicating horizontal tearing. There is increased, moderate ill-defined T2 signal elevation at the posterior meniscal capsular junction of the posterior horn medial meniscus. Linear oblique high T2 signal intensity traverses the inner, middle, and peripheral thirds of the lateral meniscal body, demonstrating inferior articular surface extension, indicating oblique tearing, as before. Cruciate ligaments: The anterior and posterior cruciate ligaments appear intact. Medial structures: The medial collateral ligament appears intact. Visualized portions of the pes anserinus tendons appear normal. Small amount of fluid signal intensity within the semimembranosus at the tibial insertion site. No abnormal bursal fluid. Lateral structures: The lateral collateral ligament demonstrates new mild T2 signal elevation at the femoral insertion site. long and short heads of the biceps femoris tendon appear intact. The popliteus tendon appears normal. Iliotibial band appears normal. Anterior structures: The quadriceps and patellar tendons appear intact. Mild T2 signal elevation within the patellar tendon at the patellar insertion site. Patellar alignment is normal. No femoral trochlear dysplasia or ventral trochlear prominence. No edema in the infrapatellar fat pad. Bones and cartilage: No bone marrow contusions or fractures. Mild tricompartmental periarticular osteophyte formation. Severe articular cartilage loss diffusely overlies the weight-bearing aspects of the medial femoral condyle and medial tibial plateau. Severe articular cartilage loss overlies the medial and lateral patellar facets. Joint space: There is a moderate knee joint effusion and a small Joseph's cyst. Small ganglion cyst along the popliteus. Multiple intra-articular loose bodies measuring less than 10 mm diameter. Normal appearing synovial plicae are incidentally noted. IMPRESSION: 1. Medial and lateral meniscal tearing as before. Increased degenerative fraying of the medial meniscus. 2. Tricompartmental osteoarthritis with associated articular cartilage loss. 3. Low-grade lateral collateral ligament tear. 4. Knee joint effusion, Joseph's cyst, and intra-articular loose bodies. 5. Stable low-grade tearing of the semimembranosus. 6. Stable patellar tendinopathy. Dictated by: Pepe Betancur M.D. on 01/01/2025 at 13:42 Approved by: Pepe Betancur M.D. on 01/01/2025 at 13:46
== END ==
PROVIDERS: PCP Family Medicine; Referring Provider Orthopaedic Surgery; Visit Provider Orthopaedic Surgery
DX: M17.11 Unilateral primary osteoarthritis, right knee (principal); S76.311A Strain of muscle, fascia and tendon of the posterior muscle group at thigh level, right thigh, initial encounter; S83.241A Other tear of medial meniscus, current injury, right knee, initial encounter; S83.281A Other tear of lateral meniscus, current injury, right knee, initial encounter; S83.421A Sprain of lateral collateral ligament of right knee, initial encounter; M25.461 Effusion, right knee; M71.21 Synovial cyst of popliteal space [Baker], right knee; M23.41 Loose body in knee, right knee; X58.XXXA Exposure to other specified factors, initial encounter
CPT/HCPCS: 73721

== ENCOUNTER → 2025-05-12 10:12 | Outpatient (CLI) | payer MEDICARE, OTHER, SELFPAY ==
--- NOTE | 2025-05-12 | DI.RAD.S_ITS ---
PROCEDURE: XR HIP W PEL IF DONE LT 2V INDICATIONS: L HIP PAIN TECHNIQUE: AP pelvis with lateral view(s) of the left hip(s). COMPARISON: [facility], , XR HIP W PEL IF DONE LT 2V, 05/14/2022, 9:33. FINDINGS: Bones: No fractures or dislocations. Pelvic ring appears intact. No suspicious bony lesions. Mild, bilateral and symmetric hip joint degeneration including minor subcortical cystic changes in the superior acetabula bilaterally. Soft tissues: The visualized bowel gas pattern is normal. No suspicious soft tissue calcifications. IMPRESSION: Mild, symmetric hip joint degeneration. No significant change compared to prior. Dictated by: Helene Ramirez M.D. on 05/12/2025 at 21:02 Approved by: Helene Ramirez M.D. on 05/12/2025 at 21:04
--- NOTE | 2025-05-12 | DI.RAD.S_ITS ---
PROCEDURE: XR LUMBAR SPINE 2-3V INDICATIONS: L HIP PAIN TECHNIQUE: 3 views of the lumbar spine were acquired. COMPARISON: [facility], , XR LUMBAR SPINE 2-3V, 05/14/2022, 9:33. FINDINGS: Bones: Five [id number] vertebrae are present. Trace retrolisthesis throughout the upper lumbar spine. Obua-[id number]-[id number] anterior endplate spurring. Moderate disc height loss L4-5 and L5-S1 otherwise mild disc height loss and slight endplate sclerosis. No vertebral body compression fractures. No suspicious bony lesions. Soft tissues: Overlying bowel gas pattern is normal. No suspicious soft tissue calcifications. IMPRESSION: Mild multilevel chronic appearing degeneration. Dictated by: Helene Ramirez M.D. on 05/12/2025 at 20:59 Approved by: Helene Ramirez M.D. on 05/12/2025 at 21:01
== END ==
PROVIDERS: PCP Family Medicine; Referring Provider Family Medicine; Visit Provider Family Medicine
DX: M16.0 Bilateral primary osteoarthritis of hip (principal); M51.369 Other intervertebral disc degeneration, lumbar region without mention of lumbar back pain or lower extremity pain
CPT/HCPCS: 72100; 73502

== ENCOUNTER → 2025-07-24 15:23 | Outpatient (CLI) | payer MEDICARE, OTHER, SELFPAY ==
--- NOTE | 2025-07-24 15:24 | DI.MG.S_ITS ---
MM screening mammo BI: 07/24/2025. BI-RADS: 2 CLINICAL: 70-year old female for bilateral screening mammogram. Tyrer-Cuzick lifetime risk of 4.9%. No personal or first-degree family history of breast cancer. The patient had a prior left breast biopsy. PRIOR EXAMS 06/27/2024, 04/22/2023, 12/16/2021, 11/07/2020, MAMMOGRAPHY TECHNIQUE: 2D and 3D (tomosynthesis) digital mammographic views obtained, with additional images as needed for full coverage. Current study was also evaluated with a Computer Aided Detection (CAD) system. DENSITY B. There are scattered areas of fibroglandular density. MAMMOGRAPHY FINDINGS Right: No suspicious mass, asymmetry, microcalcification, or other abnormality seen. Left: Benign-appearing post-surgical changes noted on the left. There are no suspicious masses, calcifications, or other findings in the breast. IMPRESSION: Right * No evidence of malignancy. Left * No evidence of malignancy with benign findings. RECOMMENDATIONS Bilateral * Annual screening mammography. OVERALL ASSESSMENT CATEGORY BI-RADS-2: Benign. The [employer] recommends annual screening mammography beginning at age 40 for women with average risk of breast cancer. ELECTRONICALLY SIGNED: Cody Almanza M.D. on 07/25/2025 at 01:47:19 PM PT Interpreting Station ID: [id number]
== END ==
LOC: MAMMO 15:23
PROVIDERS: PCP Family Medicine; Referring Provider Family Medicine; Visit Provider Family Medicine
DX: Z12.31 Encounter for screening mammogram for malignant neoplasm of breast (principal)
CPT/HCPCS: 77063; 77067